=== PATIENT | female | born 1960 | race Caucasian/White ===

== ENCOUNTER 2021-08-31 12:39 | Emergency (ER) | payer SELFPAY ==
[2021-08-31] VITALS (7 sets, daily range): BP systolic 126–184; BP diastolic 60–105; PULSE 81–111; RESP 10–18; O2SAT 87–100; BMI 49.6
--- NOTE | 2021-08-31 12:43 | XR_ITS ---
WS: [id number] Exam: XR chest 1V portable [id number] Date/Time of Exam: 08/31/2021 12:51 PM Reason For Exam: dyspnea No previous exams. The lungs are fully expanded and clear. Normal cardiomediastinal silhouette. Bony structures are inta ct. XR/XR chest 1V portable [id number] IMPRESSION: 1. No acute cardiopulmonary finding.
--- NOTE | 2021-08-31 12:49 | CT_ITS ---
WS: [id number] CT HEAD TECHNIQUE: Noncontrast CT of the head obtained from the skullbase to the vertex. CLINICAL INFORMATION: eval for pathologies. Syncope COMPARISON: None. DLP: 848.[address] scans at [facility] use at least one of these dose optimization techniques: automated e xposure control; mA and/or kV adjustment per patient size (includes targeted exams where dose is matc hed to clinical indication); or iterative reconstruction. FINDINGS: No evidence of intracranial hemorrhage or mass effect. Ventricular system and basal cisterns are mcadams nt. Mild small vessel changes with mild parenchymal volume loss. No extra-axial fluid collections. No evidence of mass or mass effect. Normal parikh-white differentiation. Intracranial vascular calcificat ion. Paranasal sinuses and mastoid air cells are well aerated. .Normal visualized soft tissues. CT/CT head wo con* [id number] IMPRESSION: 1. No evidence of intracranial hemorrhage or mass effect. 2. Mild small vessel changes. Mild parenchymal volume loss. 3. No acute intracranial findings.
[2021-08-31] MEDS: ipratropium-albuterol 3 mL Neb INHALATION ×3 (13:00→13:01)
--- NOTE | 2021-08-31 13:05 | ED_ITS ---
HPI - General Adult General: Chief complaint: Altered Mental Status Stated complaint: SOB Time Seen by Provider: 08/31/21 12:43 History of Present Illness: Patient is a 61-year-old female with history of CHF, COPD asthma smoking, hypertension, hyperlipidemia who presents emergency room for evaluation of acute dyspnea since her oxygen device broke this morning. Patient tells me that she she is at baseline on 3 L of oxygen however this morning, her oxygen device stopped working and has been short of breath since. Patient called EMS was brought to the emergency room. In route, patient was noted to be satting at 80% on room air. Patient was placed on 3L with improvement to 90% per rescue. Patient received albuterol treatments with Solu- Medrol in route. On arrival, patient reports symptomatic improvement in breathing. Patient also reports 3 days of cough and significant headache this morning with the onset of shortness of breath. Patient denies any fall or injuries. He denies any active chest pain, nausea/vomiting, melena/hematochezia, urinary complaints or abdominal pain. Patient reports that she is compliant with her furosemide dose daily patient. Patient takes 60 mg for furosemide and follows up with cardiology at a different hospital. Onset: this AM around 8am Duration:ongoing Location:home Severity:moderate Associated symptoms: Reports dyspnea; Deny chest pain, nausea, rash, palpitations or vomiting Review of Systems Const: Denies: fever(s) or chills Eyes: Denies: change in vision ENMT: Denies: mouth pain Card: Denies: chest pain or palpitations Resp: Reports: dyspnea and non-productive cough GI: Denies: abdominal pain, nausea, vomiting or diarrhea : Denies: dysuria Musc: Denies: extremity pain Skin/Breast: Denies: rash or new lesions Neuro: Denies: weakness in extremities Psych: Reports: other (Normal mood) [place]/Lymph: Denies: easy bruising PFSH ED PFSH: Medical History (Updated 08/31/21 @ 14:17 by Rashawn Ocasio MD) CHF (congestive heart failure) COPD (chronic obstructive pulmonary disease) COPD exacerbation Hypertension Social History (Updated 08/31/21 @ 13:10 by Rashawn Ocasio MD) Smoking and tobacco status: current every day smoker Alcohol intake: never Physical Exam Const: COMMON NORMALS: alert HENMT: COMMON NORMALS: atraumatic HEAD & SCALP: atraumatic MOUTH: moist mucous membranes not abnormal Eye: COMMON NORMALS: EOMs intact bilaterally and conjunctivae normal CONJUNCTIVA: Yes conjunctivae normal Neck/C-Spine: COMMON NORMALS: full ROM and supple Resp: COMMON NORMALS: normal respiratory effort OTHER: + Mild expiratory wheezes bilaterally lung quispe, coarse breath sounds bilaterally Cardio: COMMON NORMALS: regular rate RATE: regular rate GI: COMMON NORMALS: Soft to palpation and non-tender PALPATION: Yes Soft to palpation Extremity: COMMON NORMALS: full ROM NARRATIVE EXTREMITY EXAM: 1+ lower extremity edema below hte knees Neuro: SENSORIUM/ORIENTATION: Yes alert MOTOR EXAM: No Abnormal motor strength present and Other motor observations present (no focal motor deficits) Psych: COMMON NORMALS: speech normal SPEECH: Yes normal speech MOOD & AFFECT: Yes euthymic mood Course Vital Signs: Vital signs: Vital Signs Pulse Rate 85 08/31/21 16:08 Respiratory Rate 16 08/31/21 16:08 Blood Pressure 126/60 08/31/21 16:08 Pulse Oximetry 100 08/31/21 16:08 MDM - General Adult Medical Decision Making 61-year-old female with a history of CHF, COPD, smoking on 3L oxygen at baseline presenting to emergency room with acute dyspnea after her oxygen device failed to work at home. Patient is noted to have mild expiratory wheezes. Patient received treatments and steroids in route. Patient received additional treatment in the emergency room with significant improvement in symptoms. The patient continues to be satting greater than 95% on 2 L of oxygen. No increased work of breathing observed today. Lab work-up including x-rays negative for any acute findings. At the present time, we have performed home O2 assessment and patient elects to go home. Patient will be going to send home with 3 L of oxygen. Patient also complains of severe headache earlier today. Patient was not found to have no acute intracranial pathologies. Headache improved after observation, likely secondary to breathing treatments. Patient is able to ambulate with O2 sats greater than 95%. No signs of increased work breathing with ambulation. Patient stable for discharge. Rx albuterol inhaler, prednisone 40mg x 5 days, oxygen to go home with Disposition: Discharge. Patient counseled regarding diagnostic impression, treatment plan. Patient given ED strict return precautions to return for continuation, worsening, or development of new symptoms. Instructed to f/u w/ PCP regarding symptoms today. Patient verbalized understanding. Lab Data : 08/31/21 13:58 08/31/21 13:58 Radiology Impressions Chest X-Ray 08/31/21 12:43 IMPRESSION: 1. No acute cardiopulmonary finding. Head CT 08/31/21 12:49 IMPRESSION: 1. No evidence of intracranial hemorrhage or mass effect. 2. Mild small vessel changes. Mild parenchymal volume loss. 3. No acute intracranial findings. Laboratory Results WBC 9.2 10^3/uL (4.0-10.0) 08/31/21 13:58 RBC 4.63 10^6/uL (4.1-5.3) 08/31/21 13:58 Hgb 12.7 g/dL (11.5-15.3) 08/31/21 13:58 Hct 42.9 % (37.0-47.0) 08/31/21 13:58 MCV 92.7 fl (81-99) 08/31/21 13:58 MCH 27.4 pg (28.0-34.0) L 08/31/21 13:58 MCHC 29.6 g/dL (30.0-36.0) L 08/31/21 13:58 RDW 12.6 % (12.1-15.1) 08/31/21 13:58 Plt Count 215 10^3/cmm (130-400) 08/31/21 13:58 MPV 9.5 fL (7.4-10.4) 08/31/21 13:58 Neut % (Auto) 87.7 % 08/31/21 13:58 Lymph % (Auto) 10.3 % 08/31/21 13:58 [place] % (Auto) 1.1 % 08/31/21 13:58 Eos % (Auto) 0.4 % 08/31/21 13:58 Baso % (Auto) 0.3 % 08/31/21 13:58 Neut # (Auto) 8.07 10^3/uL (1.8-7.7) H 08/31/21 13:58 Lymph # (Auto) 1.0 10^3/uL (0.8-4.8) 08/31/21 13:58 [place] # (Auto) 0.1 10^3/uL (0.2-0.9) L 08/31/21 13:58 Eos # (Auto) 0.0 10^3/uL (0.0-0.8) 08/31/21 13:58 Baso # (Auto) 0.0 10^3/uL (0.0-0.1) 08/31/21 13:58 Nucleated RBC % (auto) 0 % 08/31/21 13:58 Nucleated RBCs # 0.0 /100WBC 08/31/21 13:58 Sodium 145 mmol/L (136-145) 08/31/21 13:58 Potassium 3.8 mmol/L (3.5-5.1) 08/31/21 13:58 Chloride 97 mmol/L (98-107) L 08/31/21 13:58 Carbon Dioxide 39 mmol/L (22-29) H 08/31/21 13:58 Anion Gap 12.8 (5-19) 08/31/21 13:58 BUN 10 mg/dL (8-23) 08/31/21 13:58 Creatinine 0.6 mg/dL (0.5-0.9) 08/31/21 13:58 GFR Calculation 101.0 mL/min (90-130) 08/31/21 13:58 Glucose 151 mg/dL (65-115) H 08/31/21 13:58 Calculated Osmolality 302 mOsm/kg (285-295) H 08/31/21 13:58 Calcium 10.0 mg/dL (8.5-10.5) 08/31/21 13:58 Troponin T Baseline 12 ng/L (0-10) H 08/31/21 13:58 Troponin T 120 Minute 12.08 ng/L (0-10) H 08/31/21 15:52 Delta Troponin T 0.08 ABS# (0-10) 08/31/21 15:52 NT-Pro-B Natriuret Pep 240 pg/mL (0-125) H 08/31/21 13:58 Imaging Data Other Imaging: Radiologist's impression: Launch?Image Who Can [facility] [place] [address] [place] [address] CT Scan Report Signed Patient: Lupe Barber Unit #: [id number] : 1960 Age/Sex: 61 / F ADM Date: 08/31/21 Loc: ER Room/Bed: Attending Dr: Ordering Provider/Ordering MD: Rashawn Ocasio MD Date of Service: 08/31/21 Procedure(s): CT head wo con* [id number] Accession Number(s): [id number] Report Number: [id number] WS: [id number] CT HEAD TECHNIQUE: Noncontrast CT of the head obtained from the skullbase to the vertex. CLINICAL INFORMATION: eval for pathologies. Syncope COMPARISON: None. DLP: 848.[address] scans at [facility] use at least one of these dose optimization techniques: automated exposure control; mA and/or kV adjustment per patient size (includes targeted exams where dose is matched to clinical indication); or iterative reconstruction. FINDINGS: No evidence of intracranial hemorrhage or mass effect. Ventricular system and basal cisterns are patent. Mild small vessel changes with mild parenchymal volume loss. No extra-axial fluid collections. No evidence of mass or mass effect. Normal parikh-white differentiation. Intracranial vascular calcification. Paranasal sinuses and mastoid air cells are well aerated. .Normal visualized soft tissues. CT/CT head wo con* [id number] IMPRESSION: ? 1.? No evidence of intracranial hemorrhage or mass effect. 2.? Mild small vessel changes. Mild parenchymal volume loss. 3.? No acute intracranial findings. ? Dictated By: Cortez Payne MD Signed By: Cortez Payne MD Signed Date/Time: 08/31/21 1356 DD/ [address] [address] XRay Report Signed Patient: Lupe Barber Unit #: [id number] : 1960 Age/Sex: 61 / F ADM Date: 08/31/21 Loc: ER Room/Bed: Attending Dr: Ordering Provider/Ordering MD: Rashawn Ocasio MD Date of Service: 08/31/21 Procedure(s): XR chest 1V portable [id number] Accession Number(s): [id number] Report Number: [id number] WS: [id number] Exam: XR chest 1V portable [id number] Date/Time of Exam: 08/31/2021 12:51 PM Reason For Exam: dyspnea No previous exams. The lungs are fully expanded and clear. Normal cardiomediastinal silhouette. Bony structures are intact. XR/XR chest 1V portable [id number] IMPRESSION: 1. No acute cardiopulmonary finding. ? Dictated By: Armando Croft DO Signed By: Armando Croft DO Signed Date/Time: 08/31/21 1310 DD/ 1309 Discharge Plan Discharge Patient Disposition: Home Clinical Impression: Wheezing, Dyspnea Condition: Stable Prescriptions: New prednisone 50 mg tablet 50 mg PO DAILY PRN (Reason: copd exacerbation) 5 Days Qty: 5 0RF albuterol sulfate 90 mcg/actuation HFA aerosol inhaler 2 inh inhalation Q6H PRN (Reason: shortness of breath or wheezing) 5 Days Qty: 6.7 0RF No Action multivitamin Tablet 1 tab PO DAILY 0RF furosemide 40 mg tablet 20 mg PO QAM 0RF bupropion HCl 150 mg tablet sustained-release 12 hr 150 mg PO BID 0RF Vitamin C 1,000 mg Tablet 1,000 mg PO DAILY 0RF atorvastatin 20 mg tablet 20 mg PO BEDTIME 0RF ipratropium-albuterol 0.5 mg-3 mg(2.5 mg base)/3 mL solution for nebulization 3 ml INHALATION TID PRN (Reason: Shortness Of Breath) 0RF Aspir-81 81 mg Tablet,Delayed Release (Dr/Ec) 81 mg PO BEDTIME 0RF carvedilol 3.125 mg tablet 3.125 mg PO BID 0RF Euthyrox 75 mcg tablet 75 mcg PO QAM 0RF telmisartan 40 mg tablet 40 mg PO BEDTIME 0RF Nitrostat 0.4 mg Tablet, Sublingual 0.4 mg SUBLINGUAL Q5M PRN (Reason: Chest Pain) 0RF Rx Instructions: do not exceed 3 doses per episode vitamin B complex Tablet 1 tab PO DAILY 0RF zolpidem 5 mg tablet 5 mg PO BEDTIME 0RF Hair,Skin and Nails Tablet 1 tab PO DAILY 0RF albuterol sulfate 90 mcg/actuation HFA aerosol inhaler 2 puff INHALATION Q4H PRN (Reason: Shortness Of Breath) 0RF Flonase 50 mcg/actuation [place],Suspension 2 spray INTRANASAL DAILY PRN (Reason: Allergy Symptoms) 0RF Rx Instructions: administer into each nostril Opcon-A 0.18666-3.315 % Drops 2 drp ophthalmic (eye) BID 0RF Vitamin D3 125 mcg (5,000 unit) Tablet 125 mcg PO DAILY 0RF Discharge Orders: Discharge ED (Routine); Ordered 08/31/21 Ordered By: Rashawn Ocasio Other Ambulatory Orders: DME: Oxygen (Order) Location: None Selected Ordered By: Rashawn Ocasio Discharge Diet: Advance as tolerated Discharge Activity: Increase activity as tolerated Patient Instructions: Dyspnea (ED) Activity Restrictions/Additional Instructions: Come back to the emergency room if your symptoms worsen, have any shortness of breath, fever/chills, dehydration, inability tolerate food or drinks, any difficulty breathing, or any new or concerning complaints. Please return the emergency room if your pulse ox reads less than 88% while on your usual oxygen amount. Please use your oxygen. Coding Level of Care Code ED Case Sealer for Enid Fwwilman Exam Comprehensive
[2021-08-31 14:08] LABS: Basophils % 0.3 %; Eosinophils % 0.4 %; Hematocrit 42.9 % (37.0-47.0); Hemoglobin 12.7 g/dL (11.5-15.3); Lymphocytes % 10.3 %; Mean Corpuscular HGB Conc 29.6 g/dL (30.0-36.0); Mean Corpuscular Hemoglobin 27.4 pg (28.0-34.0); Mean Corpuscular Volume 92.7 fl (81-99); Mean Platelet Volume 9.5 fL (7.4-10.4); Monocytes # 0.1 10^3/uL (0.2-0.9); Monocytes % 1.1 %; Neutrophils # 8.07 10^3/uL (1.8-7.7); Neutrophils % 87.7 %; Nucleated Red Blood Cells % 0 %; Platelet Count 215 10^3/cmm (130-400); Red Blood Count 4.63 10^6/uL (4.1-5.3); Red Cell Distribution Width 12.6 % (12.1-15.1); White Blood Count 9.2 10^3/uL (4.0-10.0)
[2021-08-31 14:29] LABS: Troponin(5th) Baseline 12 ng/L (0-10)
[2021-08-31 14:36] LABS: Anion Gap 12.8 (5-19); Blood Urea Nitrogen 10 mg/dL (8-23); Carbon Dioxide 39 mmol/L (22-29); Chloride 97 mmol/L (98-107); Glucose 151 mg/dL (65-115); NT Pro B Type Natriuretic Pept 240 pg/mL (0-125); Osmolality Calculated 302 mOsm/kg (285-295); Potassium 3.8 mmol/L (3.5-5.1); Sodium 145 mmol/L (136-145)
--- NOTE | 2021-08-31 14:43 | ECG_ITS ---
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 Measurements Intervals [place] Rate: 79 P: 72 UT: 146 QRS: 64 QRSD: 95 T: 58 QT: 301 QTc: 347 Interpretive Statements SINUS RHYTHM NONSPECIFIC T-WAVE ABNORMALITY No previous ECG available for comparison Electronically Signed On 08-31-2021 22:24:23 CDT by Suman Dockery M.D. [id number]
[2021-08-31 16:38] LABS: Troponin 5 2HR 12.08 ng/L (0-10)
[2021-08-31 16:41] LABS: Troponin 5 2HR Delta 0.08 ABS# (0-10)
== END 2021-08-31 19:00 | disposition home or self-care (01) ==
PROVIDERS: Emergency Provider Emergency Medicine
DX: J44.9 Chronic obstructive pulmonary disease, unspecified (principal); R41.82 Altered mental status, unspecified; I11.0 Hypertensive heart disease with heart failure; I50.9 Heart failure, unspecified; F17.210 Nicotine dependence, cigarettes, uncomplicated; E78.5 Hyperlipidemia, unspecified; Z99.81 Dependence on supplemental oxygen
CPT/HCPCS: 70450; 71045; 80048; 83880; 84484; 85025; 93005; 94640; 99283

== ENCOUNTER 2021-12-07 01:59 | Emergency (ER) | payer MEDICAID, SELFPAY ==
[2021-12-07 02:01] VITALS: BP 117/73; PULSE 86; RESP 19; TEMP 36.7; O2SAT 94; BMI 30.9
--- NOTE | 2021-12-07 02:02 | ECG_ITS ---
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 Measurements Intervals [place] Rate: 82 P: 74 GA: 100 QRS: 57 QRSD: 97 T: 60 QT: 356 QTc: 418 Interpretive Statements SINUS RHYTHM WITH SHORT GA INTERVAL Compared to ECG 08/31/2021 15:38:30 Short GA interval now present T-wave abnormality no longer present Electronically Signed On 12-07-2021 16:29:21 CDT by Bertrand Jiménez M.D. [id number]
--- NOTE | 2021-12-07 02:02 | XRR_ITS ---
PROCEDURE INFORMATION: Exam: XR Chest Exam date and time: 12/07/2021 2:18 AM Age: 61 years old Clinical indication: Chest pressure; Patient HX: C/O chest pain with SOB. History of copd. ; Additional info: Cp TECHNIQUE: Imaging protocol: Radiologic exam of the chest. Views: 1 view. COMPARISON: CR XR chest 1V portable [id number] 08/31/2021 1:06 PM FINDINGS: Lungs: The lungs are somewhat hyperinflated with increased interstitial markings, likely representing COPD. No evidence of focal consolidation to suggest pneumonia. Pleural spaces: Unremarkable. No pleural effusion. No pneumothorax. Heart/Mediastinum: Stable cardiomediastinal silhouette. Bones/joints: Degenerative changes of the spine seen. XR/XR chest 1V portable [id number] IMPRESSION: No evidence of focal consolidation. COPD changes.
--- NOTE | 2021-12-07 02:09 | W.ED.CHESTPA ---
HPI - Chest Pain General: Chief Complaint: Chest Pain Stated Complaint: CP Time Seen by Provider: 12/07/21 02:00 Source: patient and EMS Mode of arrival: EMS Limitations: no limitations History of Present Illness: Pain has [id number] female states she is been having intermittent chest pains for the last 2 months. She states they come suddenly that sharp cramping type pains and last for seconds. She states she had an episode tonight at roughly 10:00 and then it 12 and she states that she saw her physician today and told her to come to the ER if she had pain like that again. She completely resolved she is pain-free currently she denies any worsening improving factors denies any shortness of breath she is on oxygen at baseline for COPD she is not hypoxic denies any cough or fever. Associated symptoms: Deny abdominal pain, dyspnea, fever(s), nausea or vomiting Review of Systems Const: Denies: fever(s), chills, body aches or change in appetite Eyes: Denies: blurry vision or eye discomfort ENMT: Denies: throat pain or dental pain Card: Reports: chest pain Resp: Denies: dyspnea GI: Denies: abdominal pain, nausea, vomiting or diarrhea : Denies: dysuria Musc: Denies: neck pain or back pain Skin/Breast: Denies: rash Neuro: Denies: headache(s) Psych: Denies: depression [place]/Lymph: Denies: easy bruising All/Imm: Denies: urticaria PFSH ED PFSH: Medical History CHF (congestive heart failure) COPD (chronic obstructive pulmonary disease) COPD exacerbation Hypertension Social History Smoking and tobacco status: current every day smoker Alcohol intake: never Physical Exam Const: COMMON NORMALS: no acute distress, patient oriented x3 and healthy appearing HENMT: COMMON NORMALS: normocephalic and atraumatic HEAD & SCALP: normocephalic and atraumatic Eye: COMMON NORMALS: Equal, round and reactive pupils present and EOMs intact bilaterally PUPIL: Yes Equal, round and reactive pupils present Neck/C-Spine: COMMON NORMALS: full ROM and supple Chest: COMMONS NORMALS: normal inspection of the chest and normal palpation of entire chest wall Resp: COMMON NORMALS: normal respiratory effort, No retractions, No use of accessory muscles and clear to auscultation bilaterally AUSCULTATION: clear to auscultation bilaterally Cardio: COMMON NORMALS: regular rate, regular rhythm and No murmurs present (Cardio) RATE: regular rate RHYTHM: regular rhythm GI: COMMON NORMALS: Normal to inspection, nondistended, normoactive bowel sounds present, Soft to palpation, non-tender and no masses PALPATION: Yes Soft to palpation Extremity: COMMON NORMALS: normal to inspection and full ROM Neuro: COMMON NORMALS: patient oriented x3, moves all extremities and no focal motor deficits Psych: COMMON NORMALS: mental status grossly normal, Normal thought process present and cooperative THOUGHT PROCESS: Normal thought process present Skin: COMMON NORMALS: no rashes or lesions noted and no wounds GENERAL SKIN EXAM: no rashes or lesions noted Course Vital Signs: Vital signs: Vital Signs Temperature 98.1 F 12/07/21 02:01 Pulse Rate 80 12/07/21 04:52 Respiratory Rate 26 H 12/07/21 04:52 Blood Pressure 107/75 12/07/21 04:52 Pulse Oximetry 99 12/07/21 04:52 Oxygen Delivery Me thod 12/07/21 02:01 Oxygen Flow Rate 3 12/07/21 02:01 MDM - Chest Pain Medical Decision Making Patient presents here with chest pains atypical in nature has been going on for months and is sharp in nature. Patient initial troponin here is negative she is well-appearing here she is stable for discharge she is to follow-up with PCP and return if worsening. She understands agrees to plan. Lab Data : 12/07/21 02:10 12/07/21 02:10 Laboratory Results WBC 9.2 10^3/uL (4.0-10.0) 12/07/21 02:10 RBC 4.21 10^6/uL (4.1-5.3) 12/07/21 02:10 Hgb 12.2 g/dL (11.5-15.3) 12/07/21 02:10 Hct 40.4 % (37.0-47.0) 12/07/21 02:10 MCV 96.0 fl (81-99) 12/07/21 02:10 MCH 29.0 pg (28.0-34.0) 12/07/21 02:10 MCHC 30.2 g/dL (30.0-36.0) 12/07/21 02:10 RDW 12.3 % (12.1-15.1) 12/07/21 02:10 Plt Count 277 10^3/cmm (130-400) 12/07/21 02:10 MPV 9.5 fL (7.4-10.4) 12/07/21 02:10 Neut % (Auto) 68.9 % 12/07/21 02:10 Lymph % (Auto) 23.6 % 12/07/21 02:10 [place] % (Auto) 5.3 % 12/07/21 02:10 Eos % (Auto) 1.5 % 12/07/21 02:10 Baso % (Auto) 0.5 % 12/07/21 02:10 Neut # (Auto) 6.30 10^3/uL (1.8-7.7) 12/07/21 02:10 Lymph # (Auto) 2.2 10^3/uL (0.8-4.8) 12/07/21 02:10 [place] # (Auto) 0.5 10^3/uL (0.2-0.9) 12/07/21 02:10 Eos # (Auto) 0.1 10^3/uL (0.0-0.8) 12/07/21 02:10 Baso # (Auto) 0.1 10^3/uL (0.0-0.1) 12/07/21 02:10 Nucleated RBC % (auto) 0 % 12/07/21 02:10 Nucleated RBCs # 0.0 /100WBC 12/07/21 02:10 Sodium 142 mmol/L (136-145) 12/07/21 02:10 Potassium 3.9 mmol/L (3.5-5.1) 12/07/21 02:10 Chloride 93 mmol/L (98-107) L 12/07/21 02:10 Carbon Dioxide 43 mmol/L (22-29) H* 12/07/21 02:10 Anion Gap 9.9 (5-19) 12/07/21 02:10 BUN 15 mg/dL (8-23) 12/07/21 02:10 Creatinine 0.6 mg/dL (0.5-0.9) 12/07/21 02:10 GFR Calculation 101.0 mL/min (90-130) 12/07/21 02:10 Glucose 114 mg/dL (65-115) 12/07/21 02:10 Calculated Osmolality 296 mOsm/kg (285-295) H 12/07/21 02:10 Calcium 9.8 mg/dL (8.5-10.5) 12/07/21 02:10 Total Bilirubin 0.3 mg/dL (0.15-1.2) 12/07/21 02:10 AST 15 U/L (0-32) 12/07/21 02:10 ALT 11 U/L (0-33) 12/07/21 02:10 Alkaline Phosphatase 82 IU/L (35-105) 12/07/21 02:10 Troponin T Baseline 11 ng/L (0-10) H 12/07/21 02:10 Total Protein 6.5 g/dL (6.6-8.7) L 12/07/21 02:10 Albumin 4.0 g/dL (3.5-5.2) 12/07/21 02:10 Globulin 2.5 g/dL (1.3-4.6) 12/07/21 02:10 EKG Data EKG 1: I personally reviewed and interpreted this EKG as follows: EKG interpretation date: 12/07/21 EKG interpretation time: 02:09 Interpretation: nsr hr [address] or t wave abnormalities qrs 97 qtc 395 Discharge Plan Discharge Patient Disposition: Home Clinical Impression: Chest pain Condition: Stable Prescriptions: No Action multivitamin Tablet 1 tab PO DAILY furosemide 40 mg tablet 20 mg PO QAM bupropion HCl 150 mg tablet sustained-release 12 hr 150 mg PO BID Vitamin C 1,000 mg Tablet 1,000 mg PO DAILY atorvastatin 20 mg tablet 20 mg PO BEDTIME ipratropium-albuterol 0.5 mg-3 mg(2.5 mg base)/3 mL solution for nebulization 3 ml INHALATION TID PRN (Reason: Shortness Of Breath) Aspir-81 81 mg Tablet,Delayed Release (Dr/Ec) 81 mg PO BEDTIME carvedilol 3.125 mg tablet 3.125 mg PO BID Euthyrox 75 mcg tablet 75 mcg PO QAM telmisartan 40 mg tablet 40 mg PO BEDTIME Nitrostat 0.4 mg Tablet, Sublingual 0.4 mg SUBLINGUAL Q5M PRN (Reason: Chest Pain) Rx Instructions: do not exceed 3 doses per episode vitamin B complex Tablet 1 tab PO DAILY zolpidem 5 mg tablet 5 mg PO BEDTIME Hair,Skin and Nails Tablet 1 tab PO DAILY albuterol sulfate 90 mcg/actuation HFA aerosol inhaler 2 puff INHALATION Q4H PRN (Reason: Shortness Of Breath) Flonase 50 mcg/actuation [place],Suspension 2 spray INTRANASAL DAILY PRN (Reason: Allergy Symptoms) Rx Instructions: administer into each nostril Opcon-A 0.56190-5.315 % Drops 2 drp ophthalmic (eye) BID Vitamin D3 125 mcg (5,000 unit) Tablet 125 mcg PO DAILY Discharge Orders: Discharge ED (Routine); Ordered 12/07/21 Ordered By: Mariya Casper Referrals: Bertrand Jiménez MD [Physician] - 1-3 days Discharge Diet: Advance as tolerated Discharge Activity: Resume usual activity Patient Instructions: Chest Pain (ED) Coding Level of Care Code ED Recycle Worker for Chg Fwd Exam Comprehensive
[2021-12-07 02:17] LABS: Basophils # 0.1 10^3/uL (0.0-0.1); Basophils % 0.5 %; Eosinophils # 0.1 10^3/uL (0.0-0.8); Eosinophils % 1.5 %; Hematocrit 40.4 % (37.0-47.0); Hemoglobin 12.2 g/dL (11.5-15.3); Lymphocytes # 2.2 10^3/uL (0.8-4.8); Lymphocytes % 23.6 %; Mean Corpuscular HGB Conc 30.2 g/dL (30.0-36.0); Mean Platelet Volume 9.5 fL (7.4-10.4); Monocytes # 0.5 10^3/uL (0.2-0.9); Monocytes % 5.3 %; Neutrophils % 68.9 %; Nucleated Red Blood Cells % 0 %; Platelet Count 277 10^3/cmm (130-400); Red Blood Count 4.21 10^6/uL (4.1-5.3); Red Cell Distribution Width 12.3 % (12.1-15.1); White Blood Count 9.2 10^3/uL (4.0-10.0)
[2021-12-07 02:21] VITALS: BP 130/67; PULSE 82; RESP 19; O2SAT 98
[2021-12-07 04:37] LABS: Alanine Aminotransferase 11 U/L (0-33); Alkaline Phosphatase 82 IU/L (35-105); Anion Gap 9.9 (5-19); Aspartate Amino Transferase 15 U/L (0-32); Blood Urea Nitrogen 15 mg/dL (8-23); Calcium 9.8 mg/dL (8.5-10.5); Chloride 93 mmol/L (98-107); Globulin 2.5 g/dL (1.3-4.6); Glucose 114 mg/dL (65-115); Osmolality Calculated 296 mOsm/kg (285-295); Potassium 3.9 mmol/L (3.5-5.1); Sodium 142 mmol/L (136-145); Total Bilirubin 0.3 mg/dL (0.15-1.2); Total Protein 6.5 g/dL (6.6-8.7); Troponin(5th) Baseline 11 ng/L (0-10)
[2021-12-07 04:52] VITALS: BP 107/75; PULSE 80; RESP 26; O2SAT 99
[2021-12-07 04:53] LABS: Carbon Dioxide 43 mmol/L (22-29)
--- NOTE | 2021-12-07 07:38 | DCPLANNER ---
Addendum entered by Sharon Israel 12/08/21 09:20: winter sports manager was sent the following message from [facility] regarding appointment: Patient wants to talk to primary first and then call back to get an appointment On 12/07/21 @ 08:35 Usha Rockwell Wrote To [facility] Front Office Attempted to contact patient - left a voicemail to call back Original Note: winter sports manager had message to schedule a follow up appointment for patient with cardiology. winter sports manager sent patients information to the front office staff at [facility]. Patients information will be printed and reviewed. Clinic will call patient with appointment information.
== END 2021-12-07 05:03 | disposition home or self-care (01) ==
PROVIDERS: Emergency Provider Emergency Medicine
DX: R07.9 Chest pain, unspecified (principal); Z79.82 Long term (current) use of aspirin; I11.0 Hypertensive heart disease with heart failure; I50.9 Heart failure, unspecified; J44.9 Chronic obstructive pulmonary disease, unspecified; F17.210 Nicotine dependence, cigarettes, uncomplicated
CPT/HCPCS: 71045; 80053; 84484; 85025; 93005; 99285

== ENCOUNTER 2022-06-05 02:07 | Emergency (ER) | payer MEDICAID, SELFPAY ==
[2022-06-05 02:08] VITALS: BMI 34.3
[2022-06-05 02:15] VITALS: BP 110/75; PULSE 107; RESP 22; TEMP 37.1; O2SAT 89
--- NOTE | 2022-06-05 02:31 | XRR_ITS ---
PROCEDURE INFORMATION: Exam: XR Chest Exam date and time: 06/05/2022 2:53 AM Age: 62 years old Clinical indication: Pain; Chest pressure; Additional info: Cp TECHNIQUE: Imaging protocol: Radiologic exam of the chest. Views: 1 view. COMPARISON: CR (CHEST, ) 12/07/2021 2:18 AM FINDINGS: Lungs: There is mild prominence of the central pulmonary vasculature with increased linear and interstitial opacity seen in the mid lower hemithoraces, findings that could represent pulmonary edema. Superimposed bilateral basilar pneumonitis cannot be entirely excluded. Pleural spaces: Unremarkable. No pleural effusion. No pneumothorax. Heart/Mediastinum: Unremarkable. No cardiomegaly. Bones/joints: Unremarkable. XR/XR chest 1V portable [id number] IMPRESSION: Mildly prominent central pulmonary vasculature with increased linear and interstitial opacities in the mid lower hemithoraces, findings that may represent pulmonary edema. Superimposed bilateral basilar interstitial pneumonitis cannot be entirely excluded.
--- NOTE | 2022-06-05 02:34 | W.ED.CHESTPA ---
HPI - Chest Pain General: Chief Complaint: Chest Pain Stated Complaint: chest pressure Time Seen by Provider: 06/05/22 02:31 History of Present Illness: 62-year-old female with a history of heart failure. She presents with chest discomfort and shortness of breath. She has had a bit of a dry cough. She noted that it felt like she was getting shocked in her chest on and off since earlier today. She noted swelling in her feet yesterday morning, so she took a dose of furosemide. She is mildly short of breath above her baseline. She is chronically on oxygen. MD complaint: chest pain Onset (ago): hour(s) Prior episodes: Yes Onset: during rest Pain location: substernal Associated symptoms: Reports dyspnea, leg edema and nausea; Deny fever(s), palpitations or vomiting Treatment prior to arrival: nitroglycerin and oxygen Review of Systems Const: Denies: fever(s) ENMT: Denies: throat pain Card: Reports: chest pain; Denies: palpitations Resp: Reports: dyspnea and non-productive cough GI: Reports: nausea; Denies: vomiting PFS ED PFSH: Medical History CHF (congestive heart failure) COPD (chronic obstructive pulmonary disease) COPD exacerbation Hypertension Social History Smoking and tobacco status: current every day smoker Alcohol intake: never Physical Exam Const: COMMON NORMALS: no acute distress GENERAL APPEARANCE: frail appearing (mildly) HENMT: COMMON NORMALS: normocephalic, atraumatic and Normal external nose present HEAD & SCALP: normocephalic and atraumatic FACE & SINUS: normal facial exam and face symmetric NOSE: Normal external nose present Eye: COMMON NORMALS: Equal, round and reactive pupils present and EOMs intact bilaterally PUPIL: Yes Equal, round and reactive pupils present Neck/C-Spine: GENERAL: Yes trachea midline Chest: CHEST: Yes Symmetrical chest wall rise Resp: COMMON NORMALS: normal respiratory effort, No retractions, No use of accessory muscles and clear to auscultation bilaterally AUSCULTATION: clear to auscultation bilaterally Cardio: COMMON NORMALS: regular rate and regular rhythm RATE: regular rate RHYTHM: regular rhythm GI: COMMON NORMALS: Normal to inspection, nondistended, normoactive bowel sounds present Extremity: COMMON NORMALS: no pedal edema Neuro: SANDRA COMA SCALE: document GCS findings [place] coma scale eye opening: Spontaneous [place] coma scale verbal response: Orientated [place] coma scale motor response: Obey commands Sandra coma scale total score: 15 SENSORY EXAM: Yes extremities (intact) Psych: COMMON NORMALS: speech normal SPEECH: Yes normal speech Skin: COMMON NORMALS: no rashes or lesions noted GENERAL SKIN EXAM: no rashes or lesions noted Course Vital Signs: Vital signs: Vital Signs Temperature 98.8 F 06/05/22 02:15 Pulse Rate 79 06/05/22 08:40 Respiratory Rate 18 06/05/22 05:30 Blood Pressure 132/65 06/05/22 08:40 Pulse Oximetry 97 06/05/22 08:40 Oxygen Delivery Me thod 06/05/22 06:51 Oxygen Flow Rate 3 06/05/22 05:30 MDM - Chest Pain Medical Decision Making 62 year old female who was here with chest pain and some shortness of breath. She does wear oxygen at home. Oxygen saturations have been stable here. Chest X-ray shows pulmonary edema. Hemoglobin is 11.4. CBC is otherwise not remarkable. Bicarbonate is 45, indicating chronic CO2 retention With compensation. BMP is otherwise not remarkable. Baseline troponin is 16, with a delta of 2.5. BP is 145. She's given an additional dose of Iv furosemide here. She will be allowed discharged to return if worsening. EKG did not reveal any acute St. changes. Lab Data 06/05/22 02:00 06/05/22 03:31 Radiology Impressions Chest X-Ray 06/05/22 02:31 IMPRESSION: Mildly prominent central pulmonary vasculature with increased linear and interstitial opacities in the mid lower hemithoraces, findings that may represent pulmonary edema. Superimposed bilateral basilar interstitial pneumonitis cannot be entirely excluded. Laboratory Results WBC 7.2 10^3/uL (4.0-10.0) 06/05/22 02:00 RBC 3.92 10^6/uL (4.1-5.3) L 06/05/22 02:00 Hgb 11.4 g/dL (11.5-15.3) L 06/05/22 02:00 Hct 38.5 % (37.0-47.0) 06/05/22 02:00 MCV 98.2 fl (81-99) 06/05/22 02:00 MCH 29.1 pg (28.0-34.0) 06/05/22 02:00 MCHC 29.6 g/dL (30.0-36.0) L 06/05/22 02:00 RDW 12.1 % (12.1-15.1) 06/05/22 02:00 Plt Count 237 10^3/cmm (130-400) 06/05/22 02:00 MPV 10.6 fL (7.4-10.4) H 06/05/22 02:00 Neut % (Auto) 59.7 % 06/05/22 02:00 Lymph % (Auto) 31.7 % 06/05/22 02:00 [place] % (Auto) 6.4 % 06/05/22 02:00 Eos % (Auto) 1.5 % 06/05/22 02:00 Baso % (Auto) 0.6 % 06/05/22 02:00 Neut # (Auto) 4.28 10^3/uL (1.8-7.7) 06/05/22 02:00 Lymph # (Auto) 2.3 10^3/uL (0.8-4.8) 06/05/22 02:00 [place] # (Auto) 0.5 10^3/uL (0.2-0.9) 06/05/22 02:00 Eos # (Auto) 0.1 10^3/uL (0.0-0.8) 06/05/22 02:00 Baso # (Auto) 0.0 10^3/uL (0.0-0.1) 06/05/22 02:00 Nucleated RBC % (auto) 0 % 06/05/22 02:00 Nucleated RBCs # 0.0 /100WBC 06/05/22 02:00 PT 13.90 SECONDS (12.1-14.9) 06/05/22 03:31 INR 1.04 (0.8-1.2) 06/05/22 03:31 APTT 24.9 SECONDS (23.9-36.7) 06/05/22 03:31 Sodium 142 mmol/L (136-145) 06/05/22 03:31 Potassium 3.5 mmol/L (3.5-5.1) 06/05/22 03:31 Chloride 95 mmol/L (98-107) L 06/05/22 03:31 Carbon Dioxide 45 mmol/L (22-29) H* 06/05/22 03:31 Anion Gap 5.5 (5-19) 06/05/22 03:31 BUN 17 mg/dL (8-23) 06/05/22 03:31 Creatinine 0.6 mg/dL (0.5-0.9) 06/05/22 03:31 GFR Calculation 100.6 mL/min (90-130) 06/05/22 03:31 Glucose 107 mg/dL (65-115) 06/05/22 03:31 Calculated Osmolality 296 mOsm/kg (285-295) H 06/05/22 03:31 Calcium 9.3 mg/dL (8.5-10.5) 06/05/22 03:31 Total Bilirubin 0.3 mg/dL (0.15-1.2) 06/05/22 03:31 AST 17 U/L (0-32) 06/05/22 03:31 ALT 12 U/L (0-33) 06/05/22 03:31 Alkaline Phosphatase 68 U/L (35-105) 06/05/22 03:31 Creatine Kinase 107 U/L (26-192) 06/05/22 03:31 Troponin T Baseline 16 ng/L (0-10) H 06/05/22 02:00 Troponin T 120 Minute 18.56 ng/L (0-10) H 06/05/22 03:31 Delta Troponin T 2.56 ABS# (0-10) 06/05/22 03:31 NT-Pro-B Natriuret Pep 145 pg/mL (0-125) H 06/05/22 03:31 Total Protein 6.4 g/dL (6.6-8.7) L 06/05/22 03:31 Albumin 3.8 g/dL (3.5-5.2) 06/05/22 03:31 Globulin 2.6 g/dL (1.3-4.6) 06/05/22 03:31 Discharge Plan Discharge Patient Disposition: Home Clinical Impression: Chest pain, Pulmonary edema Condition: Stable Prescriptions: No Action multivitamin Tablet 1 tab PO DAILY furosemide 40 mg tablet 20 mg PO QAM bupropion HCl 150 mg tablet sustained-release 12 hr 150 mg PO BID Vitamin C 1,000 mg Tablet 1,000 mg PO DAILY atorvastatin 20 mg tablet 20 mg PO BEDTIME ipratropium-albuterol 0.5 mg-3 mg(2.5 mg base)/3 mL solution for nebulization 3 ml INHALATION TID PRN (Reason: Shortness Of Breath) Aspir-81 81 mg Tablet,Delayed Release (Dr/Ec) 81 mg PO BEDTIME carvedilol 3.125 mg tablet 3.125 mg PO BID Euthyrox 75 mcg tablet 75 mcg PO QAM telmisartan 40 mg tablet 40 mg PO BEDTIME Nitrostat 0.4 mg Tablet, Sublingual 0.4 mg SUBLINGUAL Q5M PRN (Reason: Chest Pain) Rx Instructions: do not exceed 3 doses per episode vitamin B complex Tablet 1 tab PO DAILY zolpidem 5 mg tablet 5 mg PO BEDTIME Hair,Skin and Nails Tablet 1 tab PO DAILY albuterol sulfate 90 mcg/actuation HFA aerosol inhaler 2 puff INHALATION Q4H PRN (Reason: Shortness Of Breath) Flonase 50 mcg/actuation [place],Suspension 2 spray INTRANASAL DAILY PRN (Reason: Allergy Symptoms) Rx Instructions: administer into each nostril Opcon-A 0.09715-0.315 % Drops 2 drp ophthalmic (eye) BID Vitamin D3 125 mcg (5,000 unit) Tablet 125 mcg PO DAILY Discharge Orders: Discharge ED (Routine); Ordered 06/05/22 Ordered By: Clement Andre Patient Instructions: Chest Pain (ED), Pulmonary Edema (ED) Activity Restrictions/Additional Instructions: Increase your furosemide dosage to 20 mg twice daily for the next 3 days, and back to your original dosage. Return for worsening chest pain despite treatment, worsening shortness of breath, fever, or any other concerning symptoms. Coding Level of Care Code ED Ply[employer] Layup Line Back Feeder for Enid Fwwilman Exam Comprehensive
[2022-06-05 02:53] LABS: Basophils % 0.6 %; Eosinophils # 0.1 10^3/uL (0.0-0.8); Eosinophils % 1.5 %; Hematocrit 38.5 % (37.0-47.0); Hemoglobin 11.4 g/dL (11.5-15.3); Lymphocytes # 2.3 10^3/uL (0.8-4.8); Lymphocytes % 31.7 %; Mean Corpuscular HGB Conc 29.6 g/dL (30.0-36.0); Mean Corpuscular Hemoglobin 29.1 pg (28.0-34.0); Mean Corpuscular Volume 98.2 fl (81-99); Mean Platelet Volume 10.6 fL (7.4-10.4); Monocytes # 0.5 10^3/uL (0.2-0.9); Monocytes % 6.4 %; Neutrophils # 4.28 10^3/uL (1.8-7.7); Neutrophils % 59.7 %; Nucleated Red Blood Cells % 0 %; Platelet Count 237 10^3/cmm (130-400); Red Blood Count 3.92 10^6/uL (4.1-5.3); Red Cell Distribution Width 12.1 % (12.1-15.1); White Blood Count 7.2 10^3/uL (4.0-10.0)
[2022-06-05 03:14] VITALS: PULSE 100; O2SAT 96
[2022-06-05 03:19] LABS: Troponin(5th) Baseline 16 ng/L (0-10)
[2022-06-05 03:54] LABS: INR 1.04 (0.8-1.2); Partial Thromboplastin Time 24.9 SECONDS (23.9-36.7)
[2022-06-05 04:05] LABS: Troponin 5 2HR 18.56 ng/L (0-10)
[2022-06-05 04:14] LABS: Alanine Aminotransferase 12 U/L (0-33); Albumin Level 3.8 g/dL (3.5-5.2); Alkaline Phosphatase 68 U/L (35-105); Anion Gap 5.5 (5-19); Aspartate Amino Transferase 17 U/L (0-32); Blood Urea Nitrogen 17 mg/dL (8-23); Calcium 9.3 mg/dL (8.5-10.5); Chloride 95 mmol/L (98-107); Creatine Phosphokinase 107 U/L (26-192); Creatinine Clr Calc Pharmacy 103.3409; Globulin 2.6 g/dL (1.3-4.6); Glomerular Filtration Rate 100.6 mL/min (90-130); Glucose 107 mg/dL (65-115); NT Pro B Type Natriuretic Pept 145 pg/mL (0-125); Osmolality Calculated 296 mOsm/kg (285-295); Potassium 3.5 mmol/L (3.5-5.1); Sodium 142 mmol/L (136-145); Total Bilirubin 0.3 mg/dL (0.15-1.2); Total Protein 6.4 g/dL (6.6-8.7)
[2022-06-05 04:24] LABS: Troponin 5 2HR Delta 2.56 ABS# (0-10)
[2022-06-05 04:26] LABS: Carbon Dioxide 45 mmol/L (22-29)
[2022-06-05] MEDS: morphine 4 mg/mL SDV 1 mL IVP (05:19)
[2022-06-05] MEDS: ondansetron 2 mg/ML SDV 2 mL 4 MG IVP ×2 (05:19→07:10)
[2022-06-05] MEDS: FUROsemide 10 mg/mL SDV 10mL 60 MG IVP (05:20)
[2022-06-05 05:30] VITALS: BP 132/75; PULSE 78; RESP 18; O2SAT 94
[2022-06-05 06:51] VITALS: BP 131/70; PULSE 75; O2SAT 93
[2022-06-05 08:40] VITALS: BP 132/65; PULSE 79; O2SAT 97
== END 2022-06-05 08:55 | disposition home or self-care (01) ==
PROVIDERS: Emergency Provider Emergency Medicine
DX: R07.9 Chest pain, unspecified (principal); J81.1 Chronic pulmonary edema; Z79.82 Long term (current) use of aspirin; I11.0 Hypertensive heart disease with heart failure; I50.9 Heart failure, unspecified; J44.9 Chronic obstructive pulmonary disease, unspecified; F17.210 Nicotine dependence, cigarettes, uncomplicated
CPT/HCPCS: 71045; 80053; 82550; 83880; 84484; 85025; 85610; 85730; 96374; 96375; 96376; 99285; J1940; J2270; J2405

== ENCOUNTER 2022-07-03 22:03 | Inpatient (IN) | payer MEDICAID, SELFPAY ==
[2022-07-03 22:05] VITALS: BP 175/87; PULSE 79; RESP 26; TEMP 36.3; O2SAT 88; BMI 34.3
--- NOTE | 2022-07-03 22:14 | ECG_ITS ---
[facility] Test Date: 2022-07-03 Pat Name: Carmel Barber Department: Room: Gender: Female Solvent Mixer: : 1960 Requested By: Mariya Casper Order Number: [id number] Deisy MD: Suman Dockery M.D. Measurements Intervals [place] Rate: 72 P: 76 NJ: 140 QRS: 72 QRSD: 110 T: 64 QT: 369 QTc: 405 Interpretive Statements SINUS RHYTHM LOW QRS VOLTAGE IN PRECORDIAL LEADS [QRS DEFLECTION < 1.0 mV IN CHEST LEADS] Compared to ECG 12/07/2021 02:09:12 Low QRS voltage now present Short [place] interval no longer present Electronically Signed On 07-04-2022 17:38:19 SEAM CHECKER by Suman Dockery M.D. [id number] f
--- NOTE | 2022-07-03 22:14 | XRR_ITS ---
PROCEDURE INFORMATION: Exam: XR Chest Exam date and time: 07/03/2022 10:18 PM Age: 62 years old Clinical indication: Shortness of breath; Additional info: SOB TECHNIQUE: Imaging protocol: Radiologic exam of the chest. Views: 1 view. COMPARISON: CR (CHEST, ) 06/05/2022 2:53 AM FINDINGS: Lungs: Emphysematous changes. Bibasilar atelectasis versus infiltrate right greater than left. Pleural spaces: Unremarkable. No pleural effusion. No pneumothorax. Heart/Mediastinum: Unremarkable. No cardiomegaly. Bones/joints: Unremarkable. XR/XR chest 1V portable [id number] IMPRESSION: 1. Emphysematous changes. 2. Bibasilar atelectasis versus infiltrate right greater than left.
[2022-07-03 22:18] VITALS: BP 175/87; PULSE 73; RESP 20; O2SAT 100
--- NOTE | 2022-07-03 22:23 | ED_ITS ---
HPI - SOB/Dyspnea General: Chief Complaint: Shortness of Breath/Dyspnea Stated Complaint: SOB Time Seen by Provider: 07/03/22 22:07 Source: patient and EMS Mode of arrival: EMS Limitations: no limitations History of Present Illness: HPI Narrative: 62-year-old female has extensive history of COPD she is on 3 L oxygen at baseline states that she has not been able to use her albuterol for last 2 to 3 days and been having increasing shortness of breath. Patient was on 5 L EMS I turned her back down to her 3.5 L that she wears at home and she is 98% currently she denies any chest pain she has had a slight cough denies any fever. Associated symptoms: Deny abdominal pain, chest pain, fever(s), nausea or vomiting Review of Systems Const: Denies: fever(s), chills, body aches or change in appetite Eyes: Denies: blurry vision or eye discomfort ENMT: Denies: throat pain or dental pain Card: Denies: chest pain Resp: Reports: dyspnea, non-productive cough and wheezing GI: Denies: abdominal pain, nausea, vomiting or diarrhea : Denies: dysuria Musc: Denies: neck pain or back pain Skin/Breast: Denies: rash Neuro: Denies: headache(s) Psych: Denies: depression [place]/Lymph: Denies: easy bruising All/Imm: Denies: urticaria PFSH ED PFSH: Medical History CHF (congestive heart failure) COPD (chronic obstructive pulmonary disease) COPD exacerbation Hypertension Social History Smoking and tobacco status: current every day smoker Alcohol intake: never Physical Exam Const: COMMON NORMALS: patient oriented x3 GENERAL APPEARANCE: in distress HENMT: COMMON NORMALS: normocephalic and atraumatic HEAD & SCALP: normocephalic and atraumatic Eye: COMMON NORMALS: Equal, round and reactive pupils present and EOMs intact bilaterally PUPIL: Yes Equal, round and reactive pupils present Neck/C-Spine: COMMON NORMALS: full ROM and supple Chest: COMMONS NORMALS: normal inspection of the chest and normal palpation of entire chest wall Resp: COMMON NORMALS: No use of accessory muscles EFFORT & INSPECTION: Yes respiratory distress AUSCULTATION: wheezes Cardio: COMMON NORMALS: regular rate, regular rhythm and No murmurs present (Cardio) RATE: regular rate RHYTHM: regular rhythm GI: COMMON NORMALS: Normal to inspection, nondistended, normoactive bowel sounds present, Soft to palpation, non-tender and no masses PALPATION: Yes Soft to palpation Extremity: COMMON NORMALS: normal to inspection and full ROM Neuro: COMMON NORMALS: patient oriented x3, moves all extremities and no focal motor deficits Psych: COMMON NORMALS: mental status grossly normal, Normal thought process present and cooperative THOUGHT PROCESS: Normal thought process present Skin: COMMON NORMALS: no rashes or lesions noted and no wounds GENERAL SKIN EXAM: no rashes or lesions noted Course Vital Signs: Vital signs: Vital Signs Temperature 97.3 F L 07/03/22 22:05 Pulse Rate 67 07/04/22 01:06 Respiratory Rate 26 H 07/04/22 01:06 Blood Pressure 125/68 07/04/22 00:00 Pulse Oximetry 99 07/04/22 01:06 Oxygen Delivery Me thod 07/04/22 01:06 Oxygen Flow Rate 3 07/03/22 22:05 Fraction of Inspir ed Oxygen 40 07/04/22 01:06 MDM - SOB/Dyspnea Medical Decision Making Patient presents here with COPD exacerbation with hypercapnia did place her on BiPAP she still wakes she is not obtunded she is answering questions appropriately does not need intubation at this point we will continue BiPAP and admit to the ICU. Lab Data 07/03/22 22:15 07/03/22 22:15 Labs/Radiology: Radiology Impressions Chest X-Ray 07/03/22 22:14 IMPRESSION: 1. Emphysematous changes. 2. Bibasilar atelectasis versus infiltrate right greater than left. Laboratory Results WBC 7.1 10^3/uL (4.0-10.0) 07/03/22 22:15 RBC 4.24 10^6/uL (4.1-5.3) 07/03/22 22:15 Hgb 12.5 g/dL (11.5-15.3) 07/03/22 22:15 Hct 42.6 % (37.0-47.0) 07/03/22 22:15 MCV 100.5 fl (81-99) H 07/03/22 22:15 MCH 29.5 pg (28.0-34.0) 07/03/22 22:15 MCHC 29.3 g/dL (30.0-36.0) L 07/03/22 22:15 RDW 11.6 % (12.1-15.1) L 07/03/22 22:15 Plt Count 252 10^3/cmm (130-400) 07/03/22 22:15 MPV 9.8 fL (7.4-10.4) 07/03/22 22:15 Neut % (Auto) 75.2 % 07/03/22 22:15 Lymph % (Auto) 17.3 % 07/03/22 22:15 [place] % (Auto) 4.8 % 07/03/22 22:15 Eos % (Auto) 1.8 % 07/03/22 22:15 Baso % (Auto) 0.6 % 07/03/22 22:15 Neut # (Auto) 5.35 10^3/uL (1.8-7.7) 07/03/22 22:15 Lymph # (Auto) 1.2 10^3/uL (0.8-4.8) 07/03/22 22:15 [place] # (Auto) 0.3 10^3/uL (0.2-0.9) 07/03/22 22:15 Eos # (Auto) 0.1 10^3/uL (0.0-0.8) 07/03/22 22:15 Baso # (Auto) 0.0 10^3/uL (0.0-0.1) 07/03/22:15 Nucleated RBC % (auto) 0 % 07/03/22:15 Nucleated RBCs # 0.0 /100WBC 07/03/22 22:15 PT 13.10 SECONDS (12.1-14.9) 07/03/22 22:15 INR 0.96 (0.8-1.2) 07/03/22 22:15 Specimen Type Arterial 07/04/22 01:01 Sample Site Brachial, left 07/04/22 01:01 ABG pH 7.24 (7.35-7.45) L 07/04/22 01:01 ABG pCO2 104.0 mmHg (35-45) H* 07/04/22 01:01 ABG pO2 91.7 mmHg (80.0-100.0) 07/04/22 01:01 ABG HCO3 44.6 mmol/L (22-26) H 07/04/22 01:01 ABG Base Excess 13.0 mmol/L (-2.0-2.0) H 07/04/22 01:01 Chris Test N/a 07/04/22 01:01 Hematocrit 38.4 % (37-47) 07/04/22 01:01 Hgb O2 Saturation 93.0 % (95-100) L 07/03/22 23:25 Carboxyhemoglobin 3.5 %THgb (0.4-20.1) 07/03/22 23:25 Methemoglobin 1.0 % (0.4-1.5) 07/03/22 23:25 Total Hemoglobin 12.2 g/dL (12-16) 07/03/22 23:25 O2 Delivery Device Bipap 07/04/22 01:01 O2 Liters/Min 3.5 % 07/03/22 23:25 FiO2 40.0 % 07/04/22 01:01 Fusion Operator ID Sulmaabilio 07/04/22 01:01 Sodium 144 mmol/L (136-145) 07/03/22 22:15 Potassium 4.9 mmol/L (3.5-5.1) 07/03/22 22:15 Chloride 97 mmol/L (98-107) L 07/03/22 22:15 Carbon Dioxide 45 mmol/L (22-29) H* 07/03/22 22:15 Anion Gap 6.9 (5-19) 07/03/22 22:15 BUN 12 mg/dL (8-23) 07/03/22 22:15 Creatinine 0.7 mg/dL (0.5-0.9) 07/03/22 22:15 GFR Calculation 84.2 mL/min (90-130) L 07/03/22 22:15 Glucose 147 mg/dL (65-115) H 07/03/22 22:15 Calculated Osmolality 300 mOsm/kg (285-295) H 07/03/22 22:15 Calcium 10.2 mg/dL (8.5-10.5) 07/03/22 22:15 Total Bilirubin 0.3 mg/dL (0.15-1.2) 07/03/22 22:15 AST 22 U/L (0-32) 07/03/22 22:15 ALT 11 U/L (0-33) 07/03/22 22:15 Alkaline Phosphatase 87 U/L (35-105) 07/03/22 22:15 NT-Pro-B Natriuret Pep 78 pg/mL (0-125) 07/03/22 22:15 Total Protein 7.4 g/dL (6.6-8.7) 07/03/22 22:15 Albumin 4.1 g/dL (3.5-5.2) 07/03/22 22:15 Globulin 3.3 g/dL (1.3-4.6) 07/03/22 22:15 Influenza Type A Ag negative (Negative) 07/03/22 22:18 Influenza Type B Ag negative (Negative) 07/03/22 22:18 SARS-CoV-2 Ag (Rapid) negative (Negative) 07/03/22 22:18 Critical Care Time Critical Care Time: Critical Care Time: Yes Total Critical Care Time: 50 Attestation: The high probability of a clinically significant, sudden or life threatening deterioration of the patient's resp system(s) required my full and direct attention, intervention and personal management. The critical care time is as shown. This time is in addition to time spent performing any reported procedures but includes the following: [x] Data and vital sign review and interpretation [x] Patient assessment, examination and intervention [x] Documentation [x] Medication orders and management Discharge Plan Discharge Patient Disposition: Admitted As Inpatient Clinical Impression: Acute exacerbation of chronic obstructive airways disease, Acute hypercapnic respiratory failure Condition: Stable Coding Level of Care Code ED Electric Meter Inspector for Enid Keith
[2022-07-03 22:40] LABS: Influenza A by IFA negative (Negative); Influenza B by IFA negative (Negative); SARS Covid-2 Antigen negative (Negative)
[2022-07-03 22:45] LABS: INR 0.96 (0.8-1.2)
[2022-07-03 22:47] LABS: Basophils % 0.6 %; Eosinophils # 0.1 10^3/uL (0.0-0.8); Eosinophils % 1.8 %; Hematocrit 42.6 % (37.0-47.0); Hemoglobin 12.5 g/dL (11.5-15.3); Lymphocytes # 1.2 10^3/uL (0.8-4.8); Lymphocytes % 17.3 %; Mean Corpuscular HGB Conc 29.3 g/dL (30.0-36.0); Mean Corpuscular Hemoglobin 29.5 pg (28.0-34.0); Mean Corpuscular Volume 100.5 fl (81-99); Mean Platelet Volume 9.8 fL (7.4-10.4); Monocytes # 0.3 10^3/uL (0.2-0.9); Monocytes % 4.8 %; Neutrophils # 5.35 10^3/uL (1.8-7.7); Neutrophils % 75.2 %; Nucleated Red Blood Cells % 0 %; Platelet Count 252 10^3/cmm (130-400); Red Blood Count 4.24 10^6/uL (4.1-5.3); Red Cell Distribution Width 11.6 % (12.1-15.1); White Blood Count 7.1 10^3/uL (4.0-10.0)
[2022-07-03 23:01] LABS: Alanine Aminotransferase 11 U/L (0-33); Albumin Level 4.1 g/dL (3.5-5.2); Alkaline Phosphatase 87 U/L (35-105); Anion Gap 6.9 (5-19); Aspartate Amino Transferase 22 U/L (0-32); Blood Urea Nitrogen 12 mg/dL (8-23); Calcium 10.2 mg/dL (8.5-10.5); Chloride 97 mmol/L (98-107); Globulin 3.3 g/dL (1.3-4.6); Glomerular Filtration Rate 84.2 mL/min (90-130); Glucose 147 mg/dL (65-115); NT Pro B Type Natriuretic Pept 78 pg/mL (0-125); Osmolality Calculated 300 mOsm/kg (285-295); Potassium 4.9 mmol/L (3.5-5.1); Sodium 144 mmol/L (136-145); Total Bilirubin 0.3 mg/dL (0.15-1.2); Total Protein 7.4 g/dL (6.6-8.7)
[2022-07-03 23:12] VITALS: BP 163/78; O2SAT 100
[2022-07-03 23:14] LABS: Carbon Dioxide 45 mmol/L (22-29)
[2022-07-03] MEDS: ondansetron 2 mg/ML SDV 2 mL 4 MG IVP (23:24)
[2022-07-03 23:39] LABS: ABG PH Result 7.24 (7.35-7.45); Arterial Blood Gas Hematocrit 37.3 % (37-47); Base Excess ABG 13.5 mmol/L (-2.0-2.0); Blood Gas LPM 3.5 %; Blood Gas Sample Site Brachial, right; Blood Gas Sample Type Arterial; Carboxyhemoglobin 3.5 %THgb (0.4-20.1); HCO3 ABG 45.2 mmol/L (22-26); Oxygen Device NC; PO2 ABG 95.6 mmHg (80.0-100.0); Total Hemoglobin 12.2 g/dL (12-16)
[2022-07-03 23:53] VITALS: BP 157/90; PULSE 69; O2SAT 97
[2022-07-03 23:59] VITALS: PULSE 56; RESP 15; O2SAT 100
[2022-07-04] VITALS (40 sets, daily range): BP systolic 94–144; BP diastolic 57–98; PULSE 59–93; RESP 9–26; TEMP 35.9–36.9; O2SAT 84–100; BMI 31.4
[2022-07-04] MEDS: albuterol 2.5 mg/3 mL Neb INHALATION ×4 (00:57→20:59)
[2022-07-04 01:13] LABS: ABG PH Result 7.24 (7.35-7.45); Arterial Blood Gas Hematocrit 38.4 % (37-47); Blood Gas Sample Site Brachial, left; Blood Gas Sample Type Arterial; HCO3 ABG 44.6 mmol/L (22-26); Oxygen Device BIPAP; PO2 ABG 91.7 mmHg (80.0-100.0)
--- NOTE | 2022-07-04 01:35 | CTR_ITS ---
PROCEDURE INFORMATION: Exam: CT Chest Without Contrast; Diagnostic Exam date and time: 07/04/2022 4:40 AM Age: 62 years old Clinical indication: Shortness of breath; Patient HX: Severe SOB. Copd exacerbation. History of chf. TECHNIQUE: Imaging protocol: Diagnostic computed tomography of the chest without contrast. Radiation optimization: All CT scans at this facility use at least one of these dose optimization techniques: automated exposure control; mA and/or kV adjustment per patient size (includes targeted exams where dose is matched to clinical indication); or iterative reconstruction. Other protocol: This patient has received [address] and 0 known cardiac nuclear medicine studies in the 12 months prior to the current study. COMPARISON: CR (CHEST, ) 07/03/2022 10:18 PM RADIATION DOSE METRICS: Total DLP (mGy-cm): 439.91 FINDINGS: Lungs: Severe centrilobular and panlobular emphysema. Left hilar and left lower lobe calcified granulomas. No consolidation. Pleural spaces: Unremarkable. No pneumothorax. No pleural effusion. Heart: Heart size is normal. Coronary arteries: Coronary artery calcifications. Lymph nodes: Calcified left hilar and subcarinal lymph nodes. Vasculature: Atherosclerotic tortuosity and calcification of the thoracic aorta. No aortic aneurysm. Liver: Punctate hepatic calcified granulomas. Spleen: Punctate splenic calcified granulomas. Bones/joints: Thoracic spondylosis and degenerative bony changes. Soft tissues: No significant soft tissue abnormalities. CT/CT chest wo con [id number] IMPRESSION: 1. Severe centrilobular and panlobular emphysema. 2. Atherosclerotic vascular disease including coronary artery disease. 3. Old granulomatous disease. COMMENTS: In the absence of a history or active diagnosis of lung cancer, it is recommended that this patient with emphysema be evaluated for enrollment in a low dose CT lung cancer screening program.
--- NOTE | 2022-07-04 01:35 | USCV_ITS ---
Carmel Barber Age: 62 Gender: F : 1960 Exam Date: 07/04/2022 01:54 Ordering Phys: Richard Crisostomo MD Technologist: ARIAN Exam Location: [facility] [place] Indication: chf, copd , O2 dependent at 3L. Patient on BiPAP in ER 16 BP: 125 / 68 HR: 60 Rhythm: Sinus Technical Quality: Fair MEASUREMENTS (Male / Female) Normal Values 2D ECHO LV Diastolic Diameter PLAX 3.6 cm 4.2 - 5.9 / 3.9 - 5.3 cm LV Systolic Diameter PLAX 2.1 cm IVS Diastolic Thickness 0.8 cm 0.6 - 1.0 / 0.6 - 0.9 cm IVS Systolic Thickness 1.2 cm LVPW Diastolic Thickness 1.0 cm 0.6 - 1.0 / 0.6 - 0.9 cm LVPW Systolic Thickness 1.1 cm LVOT Diameter 1.7 cm LV Ejection Fraction 2D Teich 73.7 % LV Ejection Fraction MOD 2C 56.8 % LV Ejection Fraction 2C AL 60.0 % LA Diameter 3.7 cm LA Width 3.0 cm LA Height 4.7 cm RA Width 4.1 cm RA Height 3.8 cm Aorta at Sinotubular Diameter 3.0 cm IVC Diameter 1.4 cm M-MODE Aortic Annulus Diameter 3.2 cm LA Ao Ratio MM 1.1 MV E Point Septal Separation 0.2 cm DOPPLER AV Peak Velocity 171.0 cm/s LVOT Peak Velocity 166.0 cm/s AV Area Cont Eq vti 1.9 cm squared AV Area Cont Eq pk 2.1 cm squared MV Area PHT 2.8 cm squared Mitral E to A Ratio 0.8 MV E' Velocity 50.5 cm/s Mitral E to MV E' Ratio 11.6 Mitral E to LV E' Lateral Ratio 9.9 Mitral E to LV E' Septal Ratio 14.1 TV Peak E Velocity 66.0 cm/s PV Peak Velocity 105.0 cm/s RV Acceleration Time 0.1 s RV Ejection Time 0.5 s RV AcT/ET 0.3 FINDINGS Left Ventricle Left ventricle is normal in size. LV systolic function is normal with EF of 55 to 60%. No regional wall motion abnormalities are seen. Grade 1 diastolic dysfunction Right Ventricle Normal in size and function Right Atrium Normal in size Left Atrium Normal in size Mitral Valve Structurally normal valve. Trace mitral regurgitation Aortic Valve Grossly normal aortic valve. No significant stenosis or regurgitation is seen. Tricuspid Valve Trace tricuspid regurgitation. Inadequate TR jet to calculate RVSP. Pulmonic Valve Not well-visualized Pericardium Normal Aorta Normal in size IVC Grossly normal CONCLUSIONS LV systolic function is normal with EF of 55 to 60% Grade 1 diastolic dysfunction Trace mitral regurgitation Trace tricuspid regurgitation No comparison studies are available Suman Dockery MD (Electronically Signed) Final Date: 04 July 2022 12:22 S
[2022-07-04 02:16] LABS: NT Pro B Type Natriuretic Pept 77 pg/mL (0-125); Procalcitonin 0.02 ng/mL (0-0.5)
[2022-07-04 02:17] LABS: Thyroid Stimulating Hormone 2.23 uIU/mL (0.27-4.20); Vitamin B12 401 pg/mL (232-1245)
[2022-07-04 02:19] LABS: Folate Level 8.3 ng/mL (4.8-37.3)
[2022-07-04 03:14] LABS: Add Urine Microscopic? YES; Bacteria Urine 2+ /hpf; Bilirubin Urine Neg (Negative); Blood Urine 2+ (Negative); Glucose Urine UA Norm (Normal); Ketones Urine Negative (Negative); Leukocyte Esterase Urine Negative (Negative); Mucus Urine 2+ /hpf; Nitrate Urine Negative (Negative); Protein Urine 3+ (Negative); RBC Urine 0-4 /hpf (0-2); Specific Gravity, Urine 1.025 (1.005-1.030); Squamous Epithelial Cell Urine 55-80 /hpf (0-5); Urine Appearance Clear (CLEAR); Urine Color Yellow (Yellow); Urobilinogen Urine Norm (Negative); pH Urine 6 (5-7)
[2022-07-04 03:15] LABS: Add Urine Culture? No
[2022-07-04 05:01] LABS: ABG PH Result 7.25 (7.35-7.45); Alveolar-Arterial Oxygen Gradi 7.7 mmHg (5-10); Base Excess ABG 13.7 mmol/L (-2.0-2.0); Blood Gas Allen Test Pos; Blood Gas Sample Site Radial, right; Blood Gas Sample Type Arterial; Carboxyhemoglobin 2.8 %THgb (0.4-20.1); HCO3 ABG 45.3 mmol/L (22-26); HGB O2 Sat 94.6 % (95-100); Ionized Calcium Level - ABG 1.4 mmol/L (1.1-1.4); Methemoglobin 0.9 % (0.4-1.5); Oxygen Device BIPAP; Oxygen Saturation ABG 98.2; Total Hemoglobin 12.7 g/dL (12-16)
[2022-07-04] MEDS: famotidine 20 mg/2 mL INJ IVP ×2 (05:26→16:59)
[2022-07-04] MEDS: levothyroxine 75 mcg Tablet PO (05:26)
[2022-07-04] MEDS: enoxaparin 40 mg/0.4 mL Syringe SUBCUT (05:26)
--- NOTE | 2022-07-04 05:36 | PM.HP ---
Providers/Chief Complaint Admitting Physician: Richard Crisostomo MD Chief Complaint: SOB History of Present Illness Carmel Barber is a 62 year old female with past medical history of COPD on 3 L baseline oxygen supplementation, hypothyroidism, hypertension, congestive heart failure who recently moved from [place] presents to the ER today because of increasing difficulty in breathing over the last 1 week. As per patient her breathing has been getting worse gradually over the last 1 month but for last 1 week she ran out of her nebulization treatment hence her breathing has been getting worse. Denies any fevers, sick contacts, cough more than usual. Currently getting short of breath even at rest or on conversation. States she gets hospitalized at least 4-5 times a year for COPD exacerbation but has never been intubated. In the ER patient was awake and alert and was found to have a PCO2 of more than 100 on ABG with mild respiratory acidosis hence was placed on the BiPAP after which continued to have persistent hypercapnia hence decision was made to admit the patient for possible need of intubation. Examination patient was lying comfortably in bed on BiPAP at 22/8 with saturation of around 96%. Patient gets short of breath and uses accessory muscles untying of BiPAP currently. Review of Systems General: Reports: 10 or more systems reviewed and unremarkable except in HPI and below Const: Denies: fever(s), chills, body aches, change in appetite, change in weight, malaise, night sweats, diaphoresis, change in sleep pattern, daytime sleepiness or snoring Eyes: Denies: change in vision, blurry vision, photophobia, eye discomfort or eye discharge ENMT: Denies: throat pain, enlarged tonsils, hoarseness, mouth pain, oral sores, dry mouth, tinnitus, nasal congestion or post nasal drip Card: Denies: chest pain, palpitations, irregular heart rhythm, edema, swelling of feet/ankles, lightheadedness, syncope, pre-syncope, dyspnea on exertion, orthopnea, leg pain with exertion or acrocyanosis Resp: Denies: dyspnea, productive cough, non-productive cough, wheezing, stridor, pain on inspiration, change in phlegm color, hemoptysis or chest congestion GI: Denies: abdominal pain, nausea, vomiting, hematemesis, coffee ground emesis, dysphagia, heartburn, diarrhea, constipation, bloating, GI cramping, change in bowel habits, pain on defecation, hematochezia or melena : Denies: flank pain, dysuria, urinary frequency, urinary urgency, urinary hesitancy, nocturia or hematuria Musc: Denies: neck pain, back pain, extremity pain, joint pain, joint swelling, joint redness, joint stiffness or limited range of motion Neuro: Denies: headache(s), numbness in extremities, weakness in extremities, sensory changes, lack of coordination, difficulty walking, frequent falls, dizziness, vertigo, confusion, Slurred speech present, difficulty communicating thoughts or seizure-like activity Psych: Denies: anxiety, depression, mood swings, panic attacks, hopelessness or irritability Endo: Denies: polyuria, polydipsia, tired all the time, cold intolerance, excessive sweating, flushing or heat intolerance Flaquito/Lymph: Denies: easy bruising or easy bleeding All/Imm: Denies: tongue swelling, facial swelling or acute wheezing Medications/Allergies Home Medications Medication Instructions Recorded Confirmed Last Taken Type albuterol sulfate 90 mcg/actuation 2 puff inhalation Q4H PRN 08/31/21 08/31/21 Unknown History aerosol inhaler Shortness Of Breath ascorbic acid (vitamin C) 1,000 mg 1,000 mg PO DAILY 08/31/21 08/31/21 Unknown History tablet (Vitamin C) aspirin 81 mg tablet,delayed 81 mg PO BEDTIME 08/31/21 08/31/21 08/30/21 History release atorvastatin 20 mg tablet 20 mg PO BEDTIME 08/31/21 08/31/21 08/30/21 History bupropion HCl 150 mg tablet,12 hr 150 mg PO BID 08/31/21 08/31/21 1 Month Ago History sustained-release ~07/31/21 pt not taken for a m carvedilol 3.125 mg tablet 3.125 mg PO BID 08/31/21 08/31/21 2 Months Ago History ~07/03/21 cholecalciferol (vitamin D3) 125 125 mcg PO DAILY 08/31/21 08/31/21 Unknown History mcg (5,000 unit) tablet (Vitamin D3) fluticasone propionate 50 2 spray intranasal DAILY PRN 08/31/21 08/31/21 Unknown History mcg/actuation nasal Allergy Symptoms spray,suspension furosemide 40 mg tablet 20 mg PO QAM 08/31/21 08/31/21 08/29/21 History ipratropium 0.5 mg-albuterol 3 mg 3 ml inhalation TID PRN Shortness 08/31/21 08/31/21 Unknown History (2.5 mg base)/3 mL nebulization Of Breath soln levothyroxine 75 mcg tablet 75 mcg PO QAM 08/31/21 08/31/21 08/31/21 History (Euthyrox) multivitamin 1 tab PO DAILY 08/31/21 08/31/21 Unknown History multivitamin with minerals 1 tab PO DAILY 08/31/21 08/31/21 Unknown History (Hair,Skin and Nails tablet) naphazoline 0.36558 %-pheniramine 2 drp ophthalmic (eye) BID 08/31/21 08/31/21 Unknown History 0.315 % eye drops (Opcon-A) nitroglycerin 0.4 mg sublingual 0.4 mg sublingual Q5M PRN Chest 08/31/21 08/31/21 Unknown History tablet (Nitrostat) Pain telmisartan 40 mg tablet 40 mg PO BEDTIME 08/31/21 08/31/21 08/30/21 History vitamin B complex 1 tab PO DAILY 08/31/21 08/31/21 Unknown History zolpidem 5 mg tablet 5 mg PO BEDTIME 08/31/21 08/31/21 08/30/21 History Allergies Allergy/AdvReac Type Severity Reaction Status Date / Time Penicillins Allergy Unknown Verified 08/31/21 15:05 sulfamethoxazole Allergy Unknown Verified 08/31/21 15:05 [From Bactrim] trimethoprim [From Bactrim] Allergy Unknown Verified 08/31/21 15:05 PFSH Acute PFSH: Medical History (Updated 07/04/22 @ 05:44 by Richard Crisostomo MD) CHF (congestive heart failure) COPD (chronic obstructive pulmonary disease) COPD exacerbation Hypertension Hypothyroidism Social History Smoking and tobacco status: current every day smoker Alcohol intake: never Vitals/I&O/Wt Last Vital Signs Temp 98.3 F 07/04/22 05:00 Pulse 70 07/04/22 05:15 Resp 15 07/04/22 05:15 BP 132/82 07/04/22 05:15 Pulse Ox 84 L 07/04/22 05:15 O2 Del Method 07/04/22 05:02 O2 Flow Rate 3 07/03/22 22:05 FiO2 40 07/04/22 04:55 Weight last 48 hrs Weight 83.149 kg Weight 90.718 kg Physical Exam Narrative: General: No acute distress, AO x3, on BiPAP, in respiratory distress coming off BiPAP with the use of accessory muscles HEENT: PERRLA, pupils bilaterally equal and reactive Chest: Bilateral bronchial breath sounds all over lung quispe, diffuse rhonchi and crackles all over lung quispe CVS: S1-S2 regular, no murmurs, no tachycardia, no gallops, no rubs Abdomen: Soft, nontender, no organomegaly, bowel sounds present, morbidly obese Neuro: No focal deficits, no facial deformity, AO x3, power 5/5 in all limbs Urinary Catheter Management: Orta: Cath Placed During This Visit: yes Urinary Catheter Date of Insertion: 07/04/22 Urinary Catheter Time of Insertion: 02:56 Data 07/03/22 22:15 07/03/22 22:15 Micro: Microbiology 07/04/22 02:50 Legionella Urinary Antigen - Final Urine Catheterized A&P Assessment and plan (1) Acute exacerbation of chronic obstructive airways disease: PCO2 more than 100 on ABG with mild respiratory acidosis. Do not have baseline PCO2. Quite likely she is very close to her baseline but again her pH is low. Continue with BiPAP ventilation for now. Target PO2 around 88. Repeat ABG in couple of hours after being on new BiPAP settings. DuoNebs every 6 hours, budesonide twice daily. Solu-Medrol 40 mg every 8 hourly. Check echocardiogram. IV Lasix 40 mg one-time. Low concern for pneumonia. Check sputum culture, urine Legionella, bacterial antigen. Hold off on starting antibiotics for now. Flu, COVID-19 rapid antigen negative. (2) Acute and chronic respiratory failure with hypercapnia: (3) Hypertension: Continue home medications of carvedilol and telmisartan. Goal blood pressure less than 140/90 mmHg. (4) Goals of care, counseling/discussion: Plan CODE STATUS: Discussed in detail with the patient. Full code. She is okay with intubation knowing that it might be a difficult extubation for her given her advanced COPD. Patient would want her brother Mr. Marcus Middleton to be her DPOA. Cardiac diet. Lovenox for DVT prophylaxis Famotidine for PUD prophylaxis. Admit to ICU for hypercapnic respiratory failure with concerns for possible need of intubation Attestations Medical Necessity Statement*: Admission for more than 2 midnights for management of hypercapnic respiratory failure with possible requirement of intubation in setting of COPD exacerbation and High Time for a total of 70 minutes, includes reviewing past or interval history, examining/interviewing patient, placing orders, counseling patient/family/other support, updating patient/family/other support, discussing plan of care with staff, communicating with other healthcare providers, documenting encounter and coordinating care Diagnoses Acute exacerbation of chronic obstructive airways disease J44.1 Acute and chronic respiratory failure with hypercapnia J96.22 Hypertension I10 Goals of care, counseling/discussion Z71.89
[2022-07-04] MEDS: FUROsemide 10 mg/mL SDV 4mL 40 MG IVP (06:09)
[2022-07-04] MEDS: ipratropium 0.5 mg/2.5 mL Neb INHALATION ×3 (08:34→21:00)
[2022-07-04] MEDS: budesonide 0.5 mg/2 mL Neb INHALATION ×2 (08:34→20:59)
[2022-07-04 08:50] LABS: ABG PH Result 7.36 (7.35-7.45); Arterial Blood Gas Hematocrit 38.7 % (37-47); Base Excess ABG 17.1 mmol/L (-2.0-2.0); Blood Gas Operator Identificat GD; Blood Gas Sample Site Brachial, right; Blood Gas Sample Type Arterial; HCO3 ABG 46.6 mmol/L (22-26); Oxygen Device BIPAP; PO2 ABG 65.9 mmHg (80.0-100.0)
[2022-07-04 08:53] LABS: ABG PCO2 82.9 mmHg (35-45)
--- NOTE | 2022-07-04 09:00 | PC.NURSE ---
Pt stated she uses her Oxygen at home while she smokes. Oxygen safety discussed; Not smoking around Oxygen, Oxygen is flammable, could burn your face, air way and your house with you and anyone else present. Pt not happy but verbalized understanding.
--- NOTE | 2022-07-04 09:03 | PC.PHAR ---
PT UNABLE TO VERIFY OF 8:45 AM- PTS CONTACT ALSO UNABLE TO VERIFY MEDICATIONS
[2022-07-04] MEDS: ferrous gluconate 324 mg Tablet PO ×2 (09:08→17:28)
[2022-07-04] MEDS: buPROPion SR (12 HR) 150 mg Tablet PO ×2 (09:08→17:28)
--- NOTE | 2022-07-04 13:09 | PM.MISC ---
Miscellaneous Note Note: Patient was seen and examined this morning, patient is stating that she has been smoking while keeping his cannula she has been using 3 L 04/12 Active smoker Goals of care discussed with the patient Continue BiPAP until pH improves Repeat ABG at 2 PM If pH shows improvement then we will let her eat Awake and alert Euvolemic S1, S2 Currently on BiPAP FiO2 35% Hemodynamically stable Able to tell me her signs and symptoms No active chest pain or shortness of breath Very agitated Continue BiPAP until 2 PM by me repeat blood gas pH is showing improvement We will let her eat give her a break from BiPAP Active smoker, patient counseled She does not want to take it in past, tried lozenges Full code Diminished airflow bilaterally Severe COPD traits present
[2022-07-04] MEDS: nicotine 4 mg lozenge MUCOUS MEM ×2 (13:15→18:23)
[2022-07-04 14:14] LABS: ABG PH Result 7.35 (7.35-7.45); Arterial Blood Gas Hematocrit 38.3 % (37-47); Base Excess ABG 17.1 mmol/L (-2.0-2.0); Blood Gas Allen Test Pos; Blood Gas Operator Identificat GD; Blood Gas Sample Site Radial, left; Blood Gas Sample Type Arterial; HCO3 ABG 46.9 mmol/L (22-26); Oxygen Device NC; PO2 ABG 68.5 mmHg (80.0-100.0)
[2022-07-04 14:16] LABS: ABG PCO2 85.5 mmHg (35-45)
[2022-07-04] MEDS: acetaminophen 325 mg Tablet 650 MG PO (16:59)
--- NOTE | 2022-07-04 18:53 | PC.NURSE ---
Shift Note: Pt had Bipap on for most of the shift. FIO2 at 40. No significant changes between this am ABG and this afternoon ABG. Lung sounds very diminished. Removed for brief moments for PO medications and dinner. Used 3lpm/NC at those times, her home amount. She has needed nicotine lozenges twice this shift. Afebrile. Sinus rhythm noted on monitor. NO Bm this sift even though pt stated she felt like she could. 1175ml of clear pale yellow urine output. Frequent safety and comfort rounds continue. Orders and/or nursing care completed as indicated. Patient monitored for response to intervention and treatment(s). Education provided includes plan of care, progress, Solu-medrol and Lasix. Patient's business process representative verbalized understanding of all topics discussed. . Will continue to monitor.
--- NOTE | 2022-07-04 19:31 | PC.NURSE ---
Shift note: Pt had Bipap on for most of the shift. FIO2 at 40. No significant changes between this am ABG and this afternoon ABG. Lung sounds very diminished. Removed for brief moments for PO medications and dinner. Used 3lpm/NC at those times, her home amount. She has needed nicotine lozenges twice this shift. Afebrile. Sinus rhythm noted on monitor. NO Bm this sift even though pt stated she felt like she could. 1175ml of clear pale yellow urine output. Frequent safety and comfort rounds continue. Orders and/or nursing care completed as indicated. Patient monitored for response to intervention and treatment(s). Education provided includes SOlumedrol, NIcotine lozenges, Pepcid, BIPAp, plan of care and progress. Patient verbalized understanding to Oxygen safety, medications disucssed, plan of care and progress. . Will continue to monitor.
[2022-07-04] MEDS: morphine 4 mg/mL SDV 1 mL 2 MG IVP (20:48)
[2022-07-04] MEDS: atorvastatin 40 mg Tablet 20 MG PO (20:48)
[2022-07-04] MEDS: losartan 50 mg Tablet 100 MG PO (20:48)
[2022-07-04] MEDS: aspirin 81 mg EC Tablet PO (20:48)
[2022-07-05] VITALS (33 sets, daily range): BP systolic 97–157; BP diastolic 49–90; PULSE 58–86; RESP 14–26; TEMP 36.7–36.8; O2SAT 92–100
[2022-07-05] MEDS: nicotine 4 mg lozenge MUCOUS MEM ×4 (00:46→17:14)
[2022-07-05] MEDS: morphine 4 mg/mL SDV 1 mL 2 MG IVP ×3 (00:51→22:24)
[2022-07-05] MEDS: albuterol 2.5 mg/3 mL Neb INHALATION ×5 (01:20→20:45)
[2022-07-05] MEDS: ipratropium 0.5 mg/2.5 mL Neb INHALATION ×3 (01:20→20:45)
[2022-07-05 03:10] LABS: Hematocrit 35.7 % (37.0-47.0); Hemoglobin 11.2 g/dL (11.5-15.3); Lymphocytes # 0.7 10^3/uL (0.8-4.8); Lymphocytes % 11.9 %; Mean Corpuscular HGB Conc 31.4 g/dL (30.0-36.0); Mean Corpuscular Hemoglobin 30.3 pg (28.0-34.0); Mean Corpuscular Volume 96.5 fl (81-99); Mean Platelet Volume 9.9 fL (7.4-10.4); Monocytes # 0.1 10^3/uL (0.2-0.9); Monocytes % 2.1 %; Neutrophils # 5.26 10^3/uL (1.8-7.7); Neutrophils % 85.7 %; Nucleated Red Blood Cells % 0 %; Platelet Count 227 10^3/cmm (130-400); Red Cell Distribution Width 11.5 % (12.1-15.1); White Blood Count 6.1 10^3/uL (4.0-10.0)
[2022-07-05 03:26] LABS: Alanine Aminotransferase 9 U/L (0-33); Albumin Level 3.7 g/dL (3.5-5.2); Alkaline Phosphatase 70 U/L (35-105); Anion Gap 10.1 (5-19); Aspartate Amino Transferase 14 U/L (0-32); Blood Urea Nitrogen 28 mg/dL (8-23); Calcium 10.1 mg/dL (8.5-10.5); Chloride 90 mmol/L (98-107); Chol HDL Ratio 2.67 mg/dL (0.0-4.40); Cholesterol 152 mg/dL (0-200); Globulin 2.9 g/dL (1.3-4.6); Glucose 139 mg/dL (65-115); HDL Cholesterol 57 mg/dL (60-100); LDL Cholesterol Calculated 76 mg/dL (50-129); LDL HDL Ratio 1.33 RATIO (0.00-3.22); Magnesium 1.7 mg/dL (1.7-2.3); Osmolality Calculated 294 mOsm/kg (285-295); Phosphorus 3.2 mg/dL (2.5-4.5); Potassium 4.1 mmol/L (3.5-5.1); Sodium 138 mmol/L (136-145); Total Bilirubin 0.3 mg/dL (0.15-1.2); Total Protein 6.6 g/dL (6.6-8.7); Triglycerides 93 mg/dL (0-150)
[2022-07-05 03:38] LABS: Estmated Average Glucose 88; Hemoglobin A1C 4.7 % (4.0-6.0)
[2022-07-05 03:50] LABS: Carbon Dioxide 42 mmol/L (22-29)
[2022-07-05] MEDS: levothyroxine 75 mcg Tablet PO (04:55)
[2022-07-05] MEDS: enoxaparin 40 mg/0.4 mL Syringe SUBCUT (04:55)
[2022-07-05] MEDS: famotidine 20 mg/2 mL INJ IVP ×2 (04:56→17:51)
[2022-07-05] MEDS: ferrous gluconate 324 mg Tablet PO ×2 (08:15→18:09)
[2022-07-05] MEDS: buPROPion SR (12 HR) 150 mg Tablet PO ×2 (08:15→18:09)
[2022-07-05] MEDS: budesonide 0.5 mg/2 mL Neb INHALATION ×2 (08:54→20:45)
[2022-07-05 09:25] LABS: ABG PCO2 59.7 mmHg (35-45); ABG PH Result 7.46 (7.35-7.45); Arterial Blood Gas Hematocrit 36.9 % (37-47); Base Excess ABG 15.4 mmol/L (-2.0-2.0); Blood Gas Allen Test Pos; Blood Gas LPM 3.5 %; Blood Gas Operator Identificat CAK; Blood Gas Sample Site Radial, left; Blood Gas Sample Type Arterial; Oxygen Device NC; PO2 ABG 81.4 mmHg (80.0-100.0)
--- NOTE | 2022-07-05 12:28 | P.PN_ITS ---
Subjective Subjective: Patient is off BiPAP eating breakfast Brother updated Requested PT evaluation Transfer out of ICU Requested ABG which showed respiratory alkalosis Improvement in hypoxia and hypercapnia Patient is willing to quit smoking Vitals/I&O/Wt Last Vital Signs Temp 98.1 F 07/05/22 04:00 Pulse 78 07/05/22 11:42 Resp 16 07/05/22 11:42 BP 97/49 07/05/22 08:00 Pulse Ox 97 07/05/22 11:42 O2 Del Method 07/05/22 11:42 O2 Flow Rate 3.5 07/05/22 11:42 FiO2 40 07/05/22 10:00 07/04/22 07/05/22 07/05/22 22:59 06:59 14:59 Intake Total 640 / 850 60 / 910 120 / 120 Output Total 1175 / 1175 500 / 1675 Balance -535 / -325 -440 / -765 120 / 120 Weight last 48 hrs Weight 82.554 kg Weight 83.779 kg Weight 83.149 kg Weight 90.718 kg Physical Exam Narrative: Patient is sitting at the bedside eating breakfast Currently on 2 L nasal cannula Hemodynamically stable Mild edema of legs noted She has very poor movement of air bilaterally No active wheezing or crackles Abdomen soft Emotional labile S1, S2 GCS 15 nonfocal neuro exam Urinary Catheter Management: Orta: Cath Placed During This Visit: yes Reason for Continuing Indwelling Catheter: Accurate Measurement of Urinary Output in Critically Ill Patients Urinary Catheter Date of Insertion: 07/04/22 Urinary Catheter Time of Insertion: 02:56 Data 07/05/22 02:38 07/05/22 02:38 Micro: Microbiology 07/04/22 02:50 Bacterial Antigens - Final Urine Kidney A&P Assessment and plan (1) Goals of care, counseling/discussion: (2) Hypertension: (3) Acute and chronic respiratory failure with hypercapnia: (4) Acute exacerbation of chronic obstructive airways disease: (5) Acute hypercapnic respiratory failure: (6) Physical deconditioning: (7) Nicotine addiction: Plan Acute COPD exacerbation Hypoxic hypercapnic Improved with use of BiPAP Active smoker Continue empirical antibiotic coverage Afebrile No active consolidation on chest x-ray Continue IV steroids Transfer out of ICU Physical deconditioning related to underlying COPD We will give a pulmonary referral at discharge Family and patient both updated regarding my concerns related to worsening of COPD because of poor airflow, she is full code for now Brother updated Brothers number [phone], she is willing to make her brother DONALD who lives in [place] Patient is stating she is not a good terms with her daughter her name is Yvonne [phone]: Stating limited information should be forwarded to her. Transfer out of ICU to [facility] continue bupropion DVT prophylaxis on board Attestations Medical Necessity Statement*: Transfer out of ICU and Moderate Time for a total of 35 minutes, includes reviewing past or interval history, examining/interviewing patient, placing orders, counseling patient/family/other support, updating patient/family/other support, discussing plan of care with staff, documenting encounter and coordinating care Diagnoses Goals of care, counseling/discussion Z71.89 Hypertension I10 Acute and chronic respiratory failure with hypercapnia J96.22 Acute exacerbation of chronic obstructive airways disease J44.1 Acute hypercapnic respiratory failure J96.02 Physical deconditioning R53.81 Nicotine addiction F17.200
--- NOTE | 2022-07-05 17:07 | PC.NURSE ---
Nurse received patient via ICU tx. Patient is alert and oriented and sitting on the side of the bed with family at bedside.
--- NOTE | 2022-07-05 17:10 | PC.NURSE ---
1640 Transfer patient to [facility] via wheelchair on oxygen with family member AT bedside, took clothing, phone, and phone senior quality methods specialist. No c/o's.
[2022-07-05] MEDS: aspirin 81 mg EC Tablet PO (21:09)
[2022-07-05] MEDS: atorvastatin 40 mg Tablet 20 MG PO (21:09)
[2022-07-06] VITALS (16 sets, daily range): BP systolic 124–150; BP diastolic 67–88; PULSE 64–85; RESP 15–20; TEMP 36.4–36.9; O2SAT 93–98
[2022-07-06] MEDS: ipratropium 0.5 mg/2.5 mL Neb INHALATION ×4 (01:38→21:04)
[2022-07-06] MEDS: albuterol 2.5 mg/3 mL Neb INHALATION ×4 (01:38→21:04)
[2022-07-06] MEDS: nicotine 4 mg lozenge MUCOUS MEM ×2 (03:23→17:27)
[2022-07-06 05:26] LABS: Alanine Aminotransferase 10 U/L (0-33); Albumin Level 3.8 g/dL (3.5-5.2); Alkaline Phosphatase 68 U/L (35-105); Anion Gap 9.5 (5-19); Aspartate Amino Transferase 15 U/L (0-32); Blood Urea Nitrogen 30 mg/dL (8-23); Chloride 92 mmol/L (98-107); Globulin 2.8 g/dL (1.3-4.6); Glucose 127 mg/dL (65-115); Osmolality Calculated 296 mOsm/kg (285-295); Potassium 4.5 mmol/L (3.5-5.1); Sodium 139 mmol/L (136-145); Total Bilirubin 0.3 mg/dL (0.15-1.2); Total Protein 6.6 g/dL (6.6-8.7)
[2022-07-06] MEDS: famotidine 20 mg/2 mL INJ IVP ×2 (05:43→17:19)
[2022-07-06] MEDS: morphine 4 mg/mL SDV 1 mL 2 MG IVP ×3 (05:43→23:11)
[2022-07-06 05:48] LABS: Carbon Dioxide 42 mmol/L (22-29)
[2022-07-06] MEDS: enoxaparin 40 mg/0.4 mL Syringe SUBCUT (05:48)
[2022-07-06] MEDS: FUROsemide 40 mg Tablet 20 MG PO (05:48)
[2022-07-06] MEDS: levothyroxine 75 mcg Tablet PO (05:48)
[2022-07-06] MEDS: budesonide 0.5 mg/2 mL Neb INHALATION ×2 (08:31→21:04)
[2022-07-06] MEDS: buPROPion SR (12 HR) 150 mg Tablet PO ×2 (08:47→17:19)
[2022-07-06] MEDS: ferrous gluconate 324 mg Tablet PO ×2 (08:49→17:19)
--- NOTE | 2022-07-06 10:15 | P.PN_ITS ---
Subjective Subjective: Significant hypoxic events noted on overnight pulse ox study Hypercapnic Patient will need BiPAP to prevent readmission in the hospital She has severe COPD She had decided to quit smoking Work with PT, still complaining of fatigue and lethargy No overnight events Tolerating her diet Vitals/I&O/Wt Last Vital Signs Temp 98.5 F 07/06/22 07:50 Pulse 74 07/06/22 08:00 Resp 20 H 07/06/22 08:00 BP 130/69 07/06/22 07:50 Pulse Ox 93 07/06/22 08:00 O2 Del Method 07/06/22 08:00 O2 Flow Rate 2 07/06/22 08:00 FiO2 40 07/05/22 16:00 07/05/22 07/06/22 07/06/22 22:59 06:59 14:59 Intake Total 240 / 480 480 / 960 60 / 60 Balance 240 / 480 480 / 960 60 / 60 Weight last 48 hrs Weight 86.5 kg Weight 82.554 kg Physical Exam Narrative: Mild signs of trace edema lower extremity No significant air movement Currently on 2 L nasal cannula Abdomen soft S1, S2 Awake and alert GCS 15 Nonfocal neuro exam Working with PT Urinary Catheter Management: Orta: Cath Placed During This Visit: yes Reason for Continuing Indwelling Catheter: Other Urinary Catheter Date of Insertion: 07/04/22 Urinary Catheter Time of Insertion: 02:56 Data 07/05/22 02:38 07/06/22 04:24 Micro: Microbiology 07/05/22 09:10 Gram Stain - Final Sputum - Expectorated Sputum 07/04/22 13:06 MRSA Culture - Final Nose A&P Assessment and plan (1) Nicotine addiction: (2) Physical deconditioning: (3) Goals of care, counseling/discussion: (4) Hypertension: (5) Acute and chronic respiratory failure with hypercapnia: (6) Acute exacerbation of chronic obstructive airways disease: (7) Acute hypercapnic respiratory failure: Plan Severe COPD Exacerbation: Improving No active wheezing Poor airflow Minimal exertion would make her short of breath Currently on 2 L She would need BiPAP to prevent readmissions It is very important for her to have BiPAP at this point because of significant hypoxia and hypercapnia, she has decided to quit smoking Family updated Continue PT She will need outpatient pulmonary referral and pulmonary rehab No need to repeat labs for tomorrow [facility] number [phone]: Updated yesterday All questions were answered Patient remains full code DVT prophylaxis on board Position: Plan to discharge her home by tomorrow Caramel Coloring Operator updated for BiPAP approval Attestations Medical Necessity Statement*: Discharge tomorrow Coding Level of Care Code 03224 Diagnoses Nicotine addiction F17.200 Physical deconditioning R53.81 Goals of care, counseling/discussion Z71.89 Hypertension I10 Acute and chronic respiratory failure with hypercapnia J96.22 Acute exacerbation of chronic obstructive airways disease J44.1 Acute hypercapnic respiratory failure J96.02
[2022-07-06 11:16] LABS: Glucose Point of Care 211 mg/dL (70-110)
[2022-07-06] MEDS: aspirin 81 mg EC Tablet PO (21:33)
[2022-07-06] MEDS: atorvastatin 40 mg Tablet 20 MG PO (21:33)
[2022-07-07] VITALS (9 sets, daily range): BP systolic 133–147; BP diastolic 70–76; PULSE 69–76; RESP 16–22; TEMP 36.4–36.6; O2SAT 94–100
[2022-07-07] MEDS: albuterol 2.5 mg/3 mL Neb INHALATION ×3 (03:15→12:24)
[2022-07-07] MEDS: ipratropium 0.5 mg/2.5 mL Neb INHALATION ×2 (03:15→07:51)
[2022-07-07] MEDS: FUROsemide 40 mg Tablet 20 MG PO (05:46)
[2022-07-07] MEDS: levothyroxine 75 mcg Tablet PO (05:46)
[2022-07-07] MEDS: enoxaparin 40 mg/0.4 mL Syringe SUBCUT (05:46)
[2022-07-07] MEDS: famotidine 20 mg/2 mL INJ IVP (06:19)
--- NOTE | 2022-07-07 06:35 | P.DS_ITS ---
Discharge Providers Date of Admission: 07/04/22 04:39 Date of Discharge: July 07, 2022 Attending Provider at Admission: Richard Crisostomo MD Attending Provider at Discharge: Evelyne Griffin MD Diagnoses at Discharge Discharge Diagnosis (1) Nicotine addiction: Status: Acute (2) Physical deconditioning: Status: Acute (3) Goals of care, counseling/discussion: Status: Acute (4) Hypertension: Status: Acute (5) Acute and chronic respiratory failure with hypercapnia: Status: Acute (6) Acute exacerbation of chronic obstructive airways disease: Status: Acute (7) Acute hypercapnic respiratory failure: Status: Acute Reason for Visit Reason for Visit: SOB Hospital Course Hospital Course 62-year female active smoker, oxygen pendant COPD, uses 3 L at baseline, smokes more than a pack a day, chronic history of smoking, presented to the hospital for hypoxic hypercapnic respiratory failure, CT scan did not show any active consolidation she was treated with empirical antibiotics, she remained hemodynamically stable afebrile, for 48 hours she remained on BiPAP because of persistent hypercapnia, we were able to wean her off BiPAP and let her eat once she was on nasal cannula, patient was counseled aggressively regarding smoking cessation, family meeting was conducted, patient is not a good terms with her daughter, she is asking us to get in touch with her brother, his phone number is listed in my previous progress note, patient is full code for now, she does understand that in case of further worsening she may end up in the hospital again, she is high risk for readmissions, in order to prevent readmissions to case management we have got her BiPAP approved, she did show significant hypoxia overnight, significant hypercapnia, she will need BiPAP for her severe COPD, she will need pulmonary rehab and pulmonary outpatient follow-up. Patient had decided to quit smoking. She did well with physical therapy throughout her hospitalization. Patient easily gets short of breath with minimal activities, she is not short of breath with normal conversation. Home situation: She lives with her [id number], [id number] takes care of her significant other as well. Home conditions are not ideal, she does not want to go to custodial for now. At the time of discharge she will get trilogy, doxycycline, Roflumilast, DuoNeb nebulized refill Physical Exam Narrative: Awake and alert 3 L nasal cannula Patient does not move much air at baseline Abdomen soft Pursed lip breathing S1, S2 Urinary Catheter Management: Orta: Cath Placed During This Visit: yes, but has since been removed by the nurse Reason for Continuing Indwelling Catheter: Decision to DC Catheter Urinary Catheter Date of Insertion: 07/04/22 Urinary Catheter Time of Insertion: 02:56 Date Urinary Catheter Removed: 07/06/22 Time Urinary Catheter Discontinued: 10:00 Discharge Data Studies Completed and Pending Completed Studies During Hospitalization Category Date Time Status CT chest wo con [id number] Stat Cat Scan 07/04/22 01:35 Completed XR chest 1V portable [id number] Stat Exams 07/03/22 22:14 Completed CV. echo complete* [id number] Stat Ultrasound 07/04/22 01:35 Completed Pending at discharge Category Date Time Status Sputum Culture and Gram Stain Routine Lab 07/05/22 09:10 Results Radiology Impressions Chest X-Ray 07/03/22 22:14 IMPRESSION: 1. Emphysematous changes. 2. Bibasilar atelectasis versus infiltrate right greater than left. Chest CT 07/04/22 01:35 IMPRESSION: 1. Severe centrilobular and panlobular emphysema. 2. Atherosclerotic vascular disease including coronary artery disease. 3. Old granulomatous disease. COMMENTS: In the absence of a history or active diagnosis of lung cancer, it is recommended that this patient with emphysema be evaluated for enrollment in a low dose CT lung cancer screening program. Laboratory Results WBC 6.1 10^3/uL (4.0-10.0) 07/05/22 02:38 RBC 3.70 10^6/uL (4.1-5.3) L 07/05/22 02:38 Hgb 11.2 g/dL (11.5-15.3) L 07/05/22 02:38 Hct 35.7 % (37.0-47.0) L 07/05/22 02:38 MCV 96.5 fl (81-99) 07/05/22 02:38 MCH 30.3 pg (28.0-34.0) 07/05/22 02:38 MCHC 31.4 g/dL (30.0-36.0) D 07/05/22 02:38 RDW 11.5 % (12.1-15.1) L 07/05/22 02:38 Plt Count 227 10^3/cmm (130-400) 07/05/22 02:38 MPV 9.9 fL (7.4-10.4) 07/05/22 02:38 Neut % (Auto) 85.7 % 07/05/22 02:38 Lymph % (Auto) 11.9 % 07/05/22 02:38 Tillman % (Auto) 2.1 % 07/05/22 02:38 Eos % (Auto) 0.0 % 07/05/22 02:38 Baso % (Auto) 0.0 % 07/05/22 02:38 Neut # (Auto) 5.26 10^3/uL (1.8-7.7) 07/05/22 02:38 Lymph # (Auto) 0.7 10^3/uL (0.8-4.8) L 07/05/22 02:38 Tillman # (Auto) 0.1 10^3/uL (0.2-0.9) L 07/05/22 02:38 Eos # (Auto) 0.0 10^3/uL (0.0-0.8) 07/05/22 02:38 Baso # (Auto) 0.0 10^3/uL (0.0-0.1) 07/05/22 02:38 Nucleated RBC % (auto) 0 % 07/05/22 02:38 Nucleated RBCs # 0.0 /100WBC 07/05/22 02:38 PT 13.10 SECONDS (12.1-14.9) 07/03/22 22:15 INR 0.96 (0.8-1.2) 07/03/22 22:15 Specimen Type Arterial 07/05/22 09:14 Sample Site Radial, left 07/05/22 09:14 ABG pH 7.46 (7.35-7.45) H 07/05/22 09:14 ABG pCO2 59.7 mmHg (35-45) H 07/05/22 09:14 ABG pO2 81.4 mmHg (80.0-100.0) 07/05/22 09:14 ABG HCO3 42.0 mmol/L (22-26) H 07/05/22 09:14 ABG O2 Saturation 98.2 07/04/22 03:00 ABG Base Excess 15.4 mmol/L (-2.0-2.0) H 07/05/22 09:14 Chris Test Pos 07/05/22 09:14 A-a O2 Gradient 7.7 mmHg (5-10) 07/04/22 03:00 Hematocrit 36.9 % (37-47) L 07/05/22 09:14 Hgb O2 Saturation 94.6 % (95-100) L 07/04/22 03:00 Carboxyhemoglobin 2.8 %THgb (0.4-20.1) 07/04/22 03:00 Methemoglobin 0.9 % (0.4-1.5) 07/04/22 03:00 Total Hemoglobin 12.7 g/dL (12-16) 07/04/22 03:00 Sodium 142.0 mmol/L (131-143) 07/04/22 03:00 Potassium 5.0 mmol/L (3.5-5.0) 07/04/22 03:00 Glucose 161.0 mg/dL (70-115) H 07/04/22 03:00 Ionized Calcium 1.4 mmol/L (1.1-1.4) 07/04/22 03:00 O2 Delivery Device Nc 07/05/22 09:14 O2 Liters/Min 3.5 % 07/05/22 09:14 FiO2 32.0 % 07/04/22 13:58 Communications Station Manager ID Cak 07/05/22 09:14 Sodium 139 mmol/L (136-145) 07/06/22 04:24 Potassium 4.5 mmol/L (3.5-5.1) 07/06/22 04:24 Chloride 92 mmol/L (98-107) L 07/06/22 04:24 Carbon Dioxide 42 mmol/L (22-29) H* 07/06/22 04:24 Anion Gap 9.5 (5-19) 07/06/22 04:24 BUN 30 mg/dL (8-23) H 07/06/22 04:24 Creatinine 0.9 mg/dL (0.5-0.9) 07/06/22 04:24 GFR Calculation 63.0 mL/min (90-130) L 07/06/22 04:24 Glucose 127 mg/dL (65-115) H 07/06/22 04:24 POC Glucose 211 mg/dL (70-110) H 07/06/22 11:13 Estimat Average Glucose 88 07/05/22 02:38 Hemoglobin A1c 4.7 % (4.0-6.0) 07/05/22 02:38 Calculated Osmolality 296 mOsm/kg (285-295) H 07/06/22 04:24 Calcium 10.0 mg/dL (8.5-10.5) 07/06/22 04:24 Phosphorus 3.2 mg/dL (2.5-4.5) 07/05/22 02:38 Magnesium 1.7 mg/dL (1.7-2.3) 07/05/22 02:38 Total Bilirubin 0.3 mg/dL (0.15-1.2) 07/06/22 04:24 AST 15 U/L (0-32) 07/06/22 04:24 ALT 10 U/L (0-33) 07/06/22 04:24 Alkaline Phosphatase 68 U/L (35-105) 07/06/22 04:24 NT-Pro-B Natriuret Pep 77 pg/mL (0-125) 07/03/22 22:15 NT-Pro-B Natriuret Pep 78 pg/mL (0-125) 07/03/22 22:15 Total Protein 6.6 g/dL (6.6-8.7) 07/06/22 04:24 Albumin 3.8 g/dL (3.5-5.2) 07/06/22 04:24 Globulin 2.8 g/dL (1.3-4.6) 07/06/22 04:24 Triglycerides 93 mg/dL (0-150) 07/05/22 02:38 Cholesterol 152 mg/dL (0-200) 07/05/22 02:38 LDL Cholesterol, Calc 76 mg/dL (50-129) 07/05/22 02:38 HDL Cholesterol 57 mg/dL (60-100) L 07/05/22 02:38 LDL/HDL Ratio 1.33 RATIO (0.00-3.22) 07/05/22 02:38 Cholesterol/HDL Ratio 2.67 mg/dL (0.0-4.40) 07/05/22 02:38 Vitamin B12 401 pg/mL (232-1245) 07/03/22 22:15 Folate 8.3 ng/mL (4.8-37.3) 07/03/22 22:15 Procalcitonin 0.02 ng/mL (0-0.5) 07/03/22 22:15 TSH 2.23 uIU/mL (0.27-4.20) 07/03/22 22:15 Urine Color Yellow (Yellow) 07/04/22 02:50 Urine Appearance Clear (CLEAR) 07/04/22 02:50 Urine pH 6 (5-7) 07/04/22 02:50 Ur Specific Left Hand 1.025 (1.005-1.030) 07/04/22 02:50 Urine Protein 3+ (Negative) H 07/04/22 02:50 Urine Glucose (UA) Norm (Normal) 07/04/22 02:50 Urine Ketones Negative (Negative) 07/04/22 02:50 Urine Blood 2+ (Negative) H 07/04/22 02:50 Urine Nitrate Negative (Negative) 07/04/22 02:50 Urine Bilirubin Neg (Negative) 07/04/22 02:50 Urine Urobilinogen Norm mg/dL (Negative) 07/04/22 02:50 Ur Leukocyte Esterase Negative (Negative) 07/04/22 02:50 Urine RBC 0-4 /hpf (0-2) H 07/04/22 02:50 Urine WBC 5-10 /hpf (0-5) H 07/04/22 02:50 Ur Squamous Epith Cells 55-80 /hpf (0-5) H 07/04/22 02:50 Amorphous Sediment Not Reportable 07/04/22 02:50 Urine Bacteria 2+ /hpf (NONE) H 07/04/22 02:50 Hyaline Casts 10-15 /lpf H 07/04/22 02:50 Urine Mucus 2+ /hpf 07/04/22 02:50 Influenza Type A Ag negative (Negative) 07/03/22 22:18 Influenza Type B Ag negative (Negative) 07/03/22 22:18 SARS-CoV-2 Ag (Rapid) negative (Negative) 07/03/22 22:18 Vitals Last Vital Signs Temp 97.6 F 07/07/22 04:55 Pulse 72 07/07/22 04:55 Resp 20 H 07/07/22 04:55 BP 140/70 07/07/22 04:55 Pulse Ox 94 07/07/22 04:55 O2 Del Method 07/07/22 02:00 O2 Flow Rate 2 07/06/22 20:00 FiO2 40 07/07/22 03:16 Discharge Plan Discharge Patient Disposition: Home Condition: Stable Prescriptions: [place] Ellipta 100-62.5-25 mcg blister with device 1 inh inhalation DAILY Qty: 60 4RF roflumilast 250 mcg tablet 250 mcg PO DAILY Qty: 30 2RF doxycycline hyclate 100 mg tablet 100 mg PO BID 3 Days Qty: 6 0RF ipratropium-albuterol 0.5 mg-3 mg(2.5 mg base)/3 mL solution for nebulization 3 ml inhalation Q8H PRN (Reason: shortness of breath or wheezing) Qty: 180 4RF Continued multivitamin Tablet 1 tab PO DAILY furosemide 40 mg tablet 20 mg PO QAM bupropion HCl 150 mg tablet sustained-release 12 hr 150 mg PO BID ipratropium-albuterol 0.5 mg-3 mg(2.5 mg base)/3 mL solution for nebulization 3 ml INHALATION TID PRN (Reason: Shortness Of Breath) aspirin [Aspir-81] 81 mg Tablet,Delayed Release (Dr/Ec) 81 mg PO BEDTIME carvedilol 3.125 mg tablet 3.125 mg PO BID levothyroxine [Euthyrox] 75 mcg tablet 75 mcg PO QAM telmisartan 40 mg tablet 40 mg PO BEDTIME nitroglycerin [Nitrostat] 0.4 mg Tablet, Sublingual 0.4 mg SUBLINGUAL Q5M PRN (Reason: Chest Pain) Rx Instructions: do not exceed 3 doses per episode vitamin B complex Tablet 1 tab PO DAILY zolpidem 5 mg tablet 5 mg PO BEDTIME fluticasone propionate [Flonase] 50 mcg/actuation [place],Suspension 2 spray INTRANASAL DAILY PRN (Reason: Allergy Symptoms) Rx Instructions: administer into each nostril propranolol 60 mg Capsule,Extended Release 24 Hr 60 mg PO DAILY Discontinued ascorbic acid (vitamin C) [Vitamin C] 1,000 mg Tablet 1,000 mg PO DAILY atorvastatin 20 mg tablet 20 mg PO BEDTIME Hair,Skin and Nails Tablet 1 tab PO DAILY albuterol sulfate 90 mcg/actuation HFA aerosol inhaler 2 puff INHALATION Q4H PRN (Reason: Shortness Of Breath) cholecalciferol (vitamin D3) [Vitamin D3] 125 mcg (5,000 unit) Tablet 125 mcg PO DAILY naphazoline-pheniramine 0.027-0.315 % Drops 2 drp OPHTHALMIC (EYE) BID PRN (Reason: Dry Eyes) Discharge Orders: Discharge Order (Routine); Ordered 07/07/22 Ordered By: Evelyne Griffin Other Ambulatory Orders: DME: BIPAP (Order) Location: None Selected Ordered By: Evelyne Griffin Referrals: To get In Home Services [Other] (You will need to call your Insurance Company, the number is listed on your Card. They will ask you what services you are wanting.) Patient Instructions: Opioid Safety Discharge Attestations Time Spent in Discharge Care*: less than 30 min Quality Metrics Clinical Quality Measures [ No reported AMI, CVA or VTE this stay] Coding Level of Care Code Acute Code for Chg Fwd Diagnoses Nicotine addiction F17.200 Physical deconditioning R53.81 Goals of care, counseling/discussion Z71.89 Hypertension I10 Acute and chronic respiratory failure with hypercapnia J96.22 Acute exacerbation of chronic obstructive airways disease J44.1 Acute hypercapnic respiratory failure J96.02
[2022-07-07] MEDS: budesonide 0.5 mg/2 mL Neb INHALATION (07:51)
[2022-07-07] MEDS: buPROPion SR (12 HR) 150 mg Tablet PO (09:32)
[2022-07-07] MEDS: morphine 4 mg/mL SDV 1 mL 2 MG IVP (09:34)
[2022-07-07] MEDS: ferrous gluconate 324 mg Tablet PO (09:35)
[2022-07-07] MEDS: nicotine 4 mg lozenge MUCOUS MEM (10:46)
--- NOTE | 2022-07-07 14:32 | PC.NURSE ---
Discharge Note Patient discharged to home via private vehicle accompanied by brother. Discharge instructions reviewed with patient and/or customer solutions representative. Mobile pharmacy medications and/or prescriptions provided. Belongings/home medications returned.
== END 2022-07-07 14:00 | disposition home or self-care (01) | DRG 189 ==
LOC: ER 07-04 01:18 → ICU 07-04 04:34 → MEDSURG 07-05 16:48
PROVIDERS: Admitting Provider Student in an Organized Health Care Education/Training Program; Emergency Provider Emergency Medicine; Visit Provider Internal Medicine
DX: J96.21 Acute and chronic respiratory failure with hypoxia (principal); J44.1 Chronic obstructive pulmonary disease with (acute) exacerbation; J96.22 Acute and chronic respiratory failure with hypercapnia; F17.200 Nicotine dependence, unspecified, uncomplicated; Z99.81 Dependence on supplemental oxygen; Z79.82 Long term (current) use of aspirin; E03.9 Hypothyroidism, unspecified; I11.0 Hypertensive heart disease with heart failure; I50.9 Heart failure, unspecified
CPT/HCPCS: 36415; 36416; 36600; 51702; 71045; 71250; 80051; 80053; 80061; 81001; 82330; 82607; 82746; 82803; 82805; 82962; 83036; 83735; 83880; 84100; 84145; 84443; 85025; 85610; 86403; 87070; 87205; 87426; 87449; 87641; 87804; 93005; 93306; 94640; 94660; 96372; 96374; 96375; 96376; 97116; 97161; 97530; 99285; A9270; J1650; J1940; J2270; J2405; J2930; J3490; J7613; J7626; J7644

== ENCOUNTER 2024-11-17 23:38 | Emergency (ER) | payer MEDICAID, SELFPAY ==
--- OUTSIDE RECORDS SUMMARY | 2011-05-26 11:43 | XMS_ITS | Continuity of Care Document ---
Author Organization [facility] Address [address] [place] [address] Phone Care Team Providers Care Cleaner Operator Name Role Phone Unavailable Unavailable Unavailable Allergies, Adverse Reactions, Alerts Substance Reaction Status Criticality BUPROPION HCL Active No Information trimethoprim Active No Information sulfamethoxazole Active No Informat ion NORTRIPTYLINE HCL Active No Informa tion codeine Active No Information PENICILLIN G POTASSIUM Active No In formation Medications Medication Instructions Dosage Effective Dates (start - stop) Status Comments Synthroid 50 mcg Tab Take 1 tab po daily - Active ProAir HFA 90 mcg/Actuation Aerosol Inhaler Inhale two times by mouth every four hours - Active Temazepam 30 mg Cap take 1 capsule (30MG ) by ORAL route every day at bedtime as needed 30 MG - Active Zestril 10 mg Tab one by mouth once daily - Active Aspirin 81 mg Tab, Delayed Release one by mouth once daily with food - Active Simvastatin 80 mg Tab Take one daily - Active POTASSIUM CHLORIDE 20MEQTAB PRT SR 1 po daily when taking furosemide prn - Active Furosemide 20 mg Tab Take 1-2 BID prn swelling - Active Prilosec OTC 20 mg Tab Take one tablet by mouth once to twice daily - Active DuoNeb 0.5 mg-3 mg(2.5 mg base)/3 mL Neb Solution 1 amp in neb unit QID - Active Spiriva with HandiHaler 18 mcg & inhalation Caps Inhale one time by mouth daily - Active Procedures Procedure Date OV DETAILED, EST OV EXPANDED, EST OV EXPANDED, EST ROUTINE VENIPUNCTURE SPECIMEN HANDLING OV DETAILED, EST FLU VACCINE 3 YRS And Greater IM 2008 OV EXPANDED, EST ROUTINE VENIPUNCTURE SPECIMEN HANDLING OV EXPANDED, EST OV EXPANDED, EST CHEST X-RAY 2 V OV EXPANDED, EST OV EXPANDED, EST Spirometry Pre And Post Bronchodilator A dministration OV DETAILED, EST ROUTINE VENIPUNCTURE SPECIMEN HANDLING OXIMETRY OV EXPANDED, EST OXIMETRY OXIMETRY ROUTINE VENIPUNCTURE SPECIMEN HANDLING OV DETAILED, EST OV EXPANDED, EST OV EXPANDED, EST OV DETAILED, EST OV EXPANDED, EST ROUTINE VENIPUNCTURE SPECIMEN HANDLING OV EXPANDED, EST OV EXPANDED, EST OV EXPANDED, EST OV EXPANDED, EST OV EXPANDED, EST ELECTROCARDIOGRAM, COMPLETE OV EXPANDED, EST SPECIMEN HANDLING ROUTINE VENIPUNCTURE OV EXPANDED, EST OV EXPANDED, EST OV EXPANDED, EST ELECTROCARDIOGRAM, COMPLETE OXIMETRY CHEST X-RAY 2 V OV EXPANDED, EST TISSUE EXAM FOR FUNGI OV EXPANDED, EST SPECIMEN HANDLING ROUTINE VENIPUNCTURE OV MINIMAL/NURSE, EST SPECIMEN HANDLING ROUTINE VENIPUNCTURE OV MINIMAL/NURSE, EST SPECIMEN HANDLING ROUTINE VENIPUNCTURE OV MINIMAL/NURSE, EST SPECIMEN HANDLING ROUTINE VENIPUNCTURE OV EXPANDED, EST ELECTROCARDIOGRAM, COMPLETE OXIMETRY OV EXPANDED, EST ELECTROCARDIOGRAM, COMPLETE OV EXPANDED, EST SPECIMEN HANDLING ROUTINE VENIPUNCTURE OXIMETRY X-RAY EXAM OF FOOT/2 VIEWS OV EXPANDED, EST OV EXPANDED, EST OV EXPANDED, EST SPECIMEN HANDLING ROUTINE VENIPUNCTURE ELECTROCARDIOGRAM, COMPLETE CHEST X-RAY 2 V OV EXPANDED, EST Advance Directives Directive Yes / No Effective Date File Name No Information Encounters Encounter Description Practice Location Reason(s) For Visit Diagnoses Date Provider Providers Copied on Encounter [facility], [address], [address], [place], [address], tel:[phone] [place] No Information 2 No Information OV DETAILED, [facility], [address], [address], [place], [address], [place] tel: [phone] [place] cold symptoms (chief complaint) SinusitisAcute bronchitisChroni c airway obstruction, not elsewhere classified Aug- 0 No Information [facility], [address], [address], [place], [address], [place] tel: [phone] [place] No Information 0 No Information OV EXPANDED, [facility], [address], [address], [place], [address], [place] tel: [phone] [place] upper respiratory infection (chief complaint) Chronic airway obstruction, not elsewhere classifiedAcute bronchitisAcute suppurative otitis media without spontaneous rupture of eardrum Aug-2 0-201 0 No Information OV EXPANDED, [facility], [address], [address], [place], [address], [place] tel: [phone] Dada Epstein respiratory issues (chief complaint) CoughAnxiety Nov-3 0-200 9 No Information [facility], [address], [address], [place], [address], [place] tel: [phone] [place] No Information 0 5200 9 No Information OV DETAILED, [facility], [address], [address], [place], [address], [place] tel: [phone] Dada Epstein heartburn (chief complaint) Chest pain 9 No Information OV EXPANDED, [facility], [address], [address], [place], [address], [place] tel: [phone] Dada Epstein upper respiratory infection (chief complaint)si nusitis (chief complaint) Chronic airway obstruction, not elsewhere classifiedSinusi tisHyperlipidemi a 9 No Information [facility], [address], [address], [place], [address], [place] tel: [phone] Dada Epstein HyperlipidemiaSc reening for thyroid disorders 9 Nurse RN. [address] [facility] , [place], [address], [place]. [phone] OV EXPANDED, [facility], [address], [address], [place], [address], [place] tel: [phone] Dada Epstein upper respiratory infection (chief complaint)sm oking (chief complaint) No Information 9 No Information OV EXPANDED, [facility], [address], [address], [place], [address], [place] tel: [phone] Dada Epstein chest pain (chief complaint)sm oking cessation (chief complaint) Gastroesophageal Reflux (GERD)Chronic airway obstruction, not elsewhere classifiedConges tive heart failure 9 No Information [facility], [address], [address], [place], [address], [place] tel: [phone] Dada Epstein No Information 9 No Information OV EXPANDED, [facility], [address], [address], [place], [address], [place] tel: [phone] Dada Epstein cold symptoms (chief complaint) Chronic airway obstruction, not elsewhere classifiedSinusi tisChronic airway obstruction, not elsewhere classified 9 No Information OV EXPANDED, [facility], [address], [address], [place], [address], [place] tel: [phone] Dada Epstein Possible COPD (chief complaint) Chronic airway obstruction, not elsewhere classified 9 No Information [facility], [address], [address], [place], [address], [place] tel: [phone] Dada pEstein Chronic airway obstruction, not elsewhere classified 9 Nurse RN. [address], [place], [address], [place]. tel:[phone] OV DETAILED, [facility], [address], [address], [place], [address], [place] tel: [phone] Dada Epstein copd (chief complaint)th yroid (chief complaint)he art failure (chief complaint) Chronic airway obstruction, not elsewhere classifiedChest painCongestive heart failure 9 No Information [facility], [address], [address], [place], [address], [place] tel: [phone] [place] No Information 9 No Information [facility], [address], [address], [place], [address], [place] tel: [phone] Dada Epstein HyperlipidemiaMe dications, retirement use 0 8 Nurse RN. [address] [place], [address], [place]. tel:[phone] [facility], [address], [address], [place], [address], [place] tel: [phone] [place] No Information 8 No Information OV EXPANDED, [facility], [address], [address], [place], [address], [place] tel: [phone] [place] prolapsed uterus (chief complaint) MetrorrhagiaUnsp ecified genital prolapseUnspecif ied genital prolapse 8 No Information OV DETAILED, [facility], [address], [address], [place], [address], [place] tel: [phone] [place] acid reflex (chief complaint)me d refills (chief complaint) Chronic airway obstruction, not elsewhere classified 0 8 No Information OV EXPANDED, [facility], [address], [address], [place], [address], [place] tel: [phone] [place] rash (chief complaint) Allergy 200 8 No Information OV EXPANDED, [facility], [address], [address], [place], [address], [place] tel: [phone] [place] URI (chief complaint)ed isaías (chief complaint) Chronic airway obstruction, not elsewhere classified 8 No Information OV DETAILED, [facility], [address], [address], [place], [address], [place] tel: [phone] [place] chest pain (chief complaint)co ngestion (chief complaint) Chest pain Fe 5 8 No Information OV EXPANDED, [facility], [address], [address], [place], [address], [place] tel: [phone] [place] difficulty sleeping (chief complaint) InsomniaChronic airway obstruction, not elsewhere classified Duke-2 8-200 8 No Information OV EXPANDED, [facility], [address], [address], [place], [address], [place] tel: [phone] [place] No Information Dec-0 3-200 7 No Information OV EXPANDED, [facility], [address], [address], [place], [address], [place] tel: [phone] [place] No Information 2-200 7 No Information [facility], [address], [address], [place], [address], [place] tel: [phone] [place] No Information 2200 7 No Information OV EXPANDED, [facility], [address], [address], [place], [address], [place] tel: [phone] [place] No Information Sep-2 4200 7 No Information OV EXPANDED, [facility], [address], [address], [place], [address], [place] tel: [phone] [place] No Information Dec-2 2-200 7 No Information OV EXPANDED, [facility], [address], [address], [place], [address], [place] tel: [phone] [place] No Information Aug-0 8-200 7 No Information OV EXPANDED, [facility], [address], [address], [place], [address], [place] tel: [phone] [place] No Information Avelino-0 5200 7 No Information [facility], [address], [address], [place], [address], [place] tel: [phone] [place] Coronary atherosclerosis of inaja coronary arteryCongestive heart failureOther and unspecified hyperlipidemiaHy pertension, Unspec September- 5-200 7 Nurse RN. [address] [facility] , [place], [address], [place]. [phone] OV EXPANDED, [facility], [address], [address], [place], [address], [place] tel: [phone] Dada Epstein Pneumonia, organism unspecified 7 No Information OV EXPANDED, [facility], [address], [address], [place], [address], [place] tel: [phone] Dada Epstein OBSTRUCTIVE CHRONIC BRONCHITIS, WITH (ACUTE) EXACERBATION 7 No Information OV EXPANDED, [facility], [address], [address], [place], [address], [place] tel: [phone] Dada Epstein OBSTRUCTIVE CHRONIC BRONCHITIS, WITH (ACUTE) EXACERBATIONEsop hageal refluxChest pain; Unspecified 7 No Information OV EXPANDED, [facility], [address], [address], [place], [address], [place] tel: [phone] Dada Epstein Unspecified disorder of skin and subcutaneous tissue 7 No Information OV EXPANDED, [facility], [address], [address], [place], [address], [place] tel: [phone] Dada Epstein Chronic airway obstruction, not elsewhere classified 7 No Information OV MINIMAL/NURS E, [facility], [address], [address], [place], [address], [place] tel: [phone] Dada Epstein Unspecified acquired hypothyroidismCo ngestive heart failureLong-term (current) use of other medications 6 Nurse RN. [address], [place], [address], . tel:[phone] OV MINIMAL/NURS E, [facility], [address], [address], [place], [address], [place] tel: [phone] Dada Epstein Chronic airway obstruction, not elsewhere classified [address], [place], [address], [place]. tel:[phone] OV MINIMAL/NURS E, [facility], [address], [address], [place], [address], [place] tel: [phone] [place] Other and unspecified hyperlipidemiaCh ronic airway obstruction, not elsewhere classifiedEdemaL marbella-term (current) use of other medications Nurse RN. [address] [facility] , [place], [address], . tel:[phone] OV EXPANDED, [facility], [address], [address], [place], [address], [place] tel: [phone] [place] Heart disease, unspecifiedChron ic airway obstruction, not elsewhere classifiedEsopha geal reflux 6 No Information OV EXPANDED, [facility], [address], [address], [place], [address], [place] tel: [phone] [place] Chronic airway obstruction, not elsewhere classifiedPain in limbEdema 6 No Information OV EXPANDED, [facility], [address], [address], [place], [address], [place] tel: [phone] [place] Chronic pulmonary heart disease, unspecifiedPain in joint involving ankle and foot 6 No Information OV EXPANDED, [facility], [address], [address], [place], [address], [place] tel: [phone] [place] Chronic airway obstruction, not elsewhere classified 6 No Information OV EXPANDED, [facility], [address], [address], [place], [address], [place] tel: [phone] [place] Anxiety state, unspecifiedAller gic rhinitis, cause unspecifiedChron ic airway obstruction, not elsewhere classifiedOther diseases of lung, not elsewhere classified 6 No Information OV EXPANDED, [facility], [address], [address], [place], [address], [place] tel: [phone] Dada Epstein Anxiety state, unspecifiedEdema 200 6 No Information OV EXPANDED, [facility], [address], [address], [place], [address], [place] tel: [phone] Dada Epstein Chronic pulmonary heart disease, unspecifiedChron ic airway obstruction, not elsewhere classifiedEsopha geal refluxMigraine, unspecified without mention of intractable migraine 6 No Information Family History Family Member Type Diagnosis Age At Onset Son Problem (finding) suicide Brother Problem (finding) Myocardial infarction Mother Problem (finding) Leukemia Father Problem (finding) malignant neoplasm of l dina Immunizations Vaccine Date Status Comments Influenza virus vaccine, intranasal administered Source: New Immuniza tion Record Flu (split) (3 yrs or older) administered Source: New Immunization Record flu (split) (3 yrs or older) administered Source: New Immunization Record flu (split) (3 yrs or older) administered Source: New Immunization Record pneumo (2 yrs or older) (PPV23) administered Source: New Immuniza tion Record Td (adult) administered Source: New Imm unization Record Payers Payer name Insurance type Covered libertarian ID Authoriza tion(s) No Information Social History Type Description Quantity Date Captured Comments Sex Female Smoking Status No Information Chief Complaint And Reason For Visit No Information Reason For Referral Reason For Referral No Information Plan Of Treatment Date Type Action Status Goal TD Vaccine. Due on 97 due History Of Present Illness Encounter Date Complaint History Of Prese nt Illness No Information Functional Status Date Functional Assessmen t No Information Instructions Date Instruction Additional Infor mation Call if symptoms persist Assessments Type Assessment Date No Information Patient Care Teams Name Effective Dates (start - stop) Status Members No Information
[2024-11-17 23:40] VITALS: BP 119/74; PULSE 96; RESP 20; TEMP 37.2; O2SAT 97; BMI 39.4
--- OUTSIDE RECORDS SUMMARY | 2024-11-17 23:47 | XMS_ITS | Continuity of Care Document ---
Author Organization [facility]. If a dditional information is needed, contact Health Information Management at [phone] Address [address] [place] [address] Phone Care Team Providers Care Life Claims Examiner Name Role Phone Unavailable Unavailable Unavailable Unavailable Unavailable Unavailable Unavailable Unavailable Unavailable Problems Chronic diastolic heart fail ure Comments:Chronic diastolic h eart failure Abdominal aortic aneurysm wi thout rupture Comments:Abdominal aortic an eurysm (AAA) without rupture Chest pain Comments:Chest pain, unspeci fied type Tobacco user Comments:Tobacco abuse Dyslipidemia Comments:Dyslipidemia Benign hypertension Comments:HTN (hypertension), benign Allergies and Adverse Reactions Penicillins(Allergy) Onset: 10-Jan-2018 Reaction:unknown Sulfa(Sulfonamide Antibiotic s)(Allergy) Onset: 10-Jan-2018 Reaction:unknown sulfamethoxazole(Allergy) Onset: 10-Jan-2018 Reaction:anaphylaxis trimethoprim(Allergy) Onset: 10-Jan-2018 Reaction:anaphylaxis GRASS(Allergy) Penicillin V Potassium 500 M G Oral Tablet(Allergy) POLLEN EXTRACTS(Allergy) Sulfamethoxazole-Trimethopri m(Allergy) Reaction:anaphylaxis Medications 60 ACTUAT Budesonide 0.16 MG /ACTUAT / formoterol fumarate 0.0045 MG/ACTUAT Metered Dose Inhaler [Symbicort];160-4.5 MCG/ACT Inhalation BID, 2 puffs Arias Seamus P Comments:160-4.5 MCG/ACT Inhalation BID, 2 puffs Fluticasone-Salmeterol;232-1 4 MCG/ACT Inhalation Daily, 1 puff Arias Seamus P Status:Inactive Comments:232-14 MCG/ACT Inhalation Daily, 1 puff Fish Oil;600 MG Orally BID, 1 capsule Arias Seamus P Status:Inactive Comments:600 MG Orally BID, 1 capsule Calcium;600-200 MG-UNIT Oral ly BID, 1 cap(s) Arias Seamus P Status:Inactive Comments:600-200 MG-UNIT Orally BID, 1 cap(s) Alprazolam & Diet Manage Pro d;0.5 mg orally q 6 hrs PRN, one Arias Seamus P Comments:0.5 mg orally q 6 h rs PRN, one Levothyroxine Sodium 0.125 M G Oral Tablet [Synthroid];125 MCG Orally , Arias Seamus P Comments:125 MCG Orally , Furosemide 20 MG Oral Tablet ;20 MG Orally Once a day, 1 tablet Quantity:30 Arias Seamus P Comments:20 MG Orally Once a day, 1 tablet Aspirin 325 MG Oral Tablet;3 25 MG Orally Once a day, 1 tablet Arias Seamus P Comments:325 MG Orally Once a day, 1 tablet Alprazolam;0.5 MG Orally jere ry 6 hours as needed, 1 tablet Arias Seamus P Comments:0.5 MG Orally every 6 hours as needed, 1 tablet Vitamin C;1000 MG Orally Onc e a day, 1 tablet Quantity:30 Arias Seamus P Comments:1000 MG Orally Once a day, 1 tablet Zolpidem tartrate 5 MG Oral Tablet;5 MG Orally Once a day, 1 tablet at bedtime Arias Seamus P Comments:5 MG Orally Once a day, 1 tablet at bedtime Atorvastatin Calcium;40 MG O rally Once a day, 1 tablet Quantity:30 Arias Seamus P Comments:40 MG Orally Once a day, 1 tablet Losartan Potassium 50 MG Ora l Tablet;50 MG Orally Once a day, 1 tablet Arias Seamus P Comments:50 MG Orally Once a day, 1 tablet Colchicine;0.6 MG Orally as directed, 1 tablet Arias Seamus P Status:Inactive Comments:0.6 MG Orally as directed, 1 tablet {10 (predniSONE 10 MG Oral T ablet) } Pack;10 MG Orally Once a day, 1 tablet Quantity:30 Arias Seamus P Status:Inactive Comments:10 MG Orally Once a day, 1 tablet APAP 325 MG / oxyCODONE hydr ochloride 5 MG Oral Tablet;5-325 MG Orally every 6 hrs, 1 tablet as needed Arias Seamus P Status:Inactive Comments:5-325 MG Orally every 6 hrs, 1 tablet as needed Nitroglycerin;0.4 MG Subling ual , 1 tab PRN chest pressure Arias Seamus P Comments:0.4 MG Sublingual , 1 tab PRN chest pressure Oxygen;L per NC q HS only, [address] P Comments:L per NC q HS only, 2.5 Medrol (Rito);4mg tabs in dos e pack , 1 tab(s) directed Hugo Johns Status:Inactive Comments:4mg tabs in dose pack , 1 tab(s) directed DuoNeb;0.5 mg-3mg/3L solutio n for nebulizer , Hugo Johns Comments:0.5 mg-3mg/3L solut ion for nebulizer ,
--- OUTSIDE RECORDS SUMMARY | 2024-11-17 23:48 | XMS_ITS | Patient Health Record ---
Author Organization [facility] Billing Info Address [address] [place] [id number] Care Team Providers Care Complementary Health Therapists Name Role Phone EVERARDO DIANE MD Primary Care Provider Unava ilable Allergies Allergen (clinical drug ingredient) Drug/Non Drug Allergy documented on EMR Reaction Allergy Type Onset Date Status GRASS Unknown Drug Allergy Active POLLEN EXTRACTS Unknown Drug Allergy A ctive Sulfa anaphylaxis Drug Allergy Activ e Penicillin Unknown Drug Allergy Active Reason For Referral No Information Medications Medication SIG (Take, Route, Frequency, Duration) Notes Start Date End Date Status Zolpidem Tartrate 5 MG 1 tablet at bedti me Orally Once a day Active DuoNeb 0.5 mg-3mg/3L solution for nebulizer Activ e Alprazolam 0.5 MG 1 tablet Orally ever y 6 hours as needed Active Nitroglycerin 0.4 MG 1 tab PRN chest pre ssure Sublingual Active Aspirin 325 MG 1 tablet Orally Once a day Active Symbicort 160-4.5 MCG/ACT 2 puffs Inhalation BID Active Oxygen L per NC 2.5 q HS only Active Losartan Potassium 50 MG 1 tablet Orally Once a day Active Synthroid 125 MCG Orally Ac tive Atorvastatin Calcium 40 MG 1 tablet Oral ly Once a day for 30 day(s) Active Vitamin C 1000 MG 1 tablet Orally Once a day for 30 day(s) Active Furosemide 20 MG 1 tablet Orally Once a day for 30 day(s) Active Social History Tobacco Use: Social History Observation Description Date Details (start date - stop date) Current Smoker NA - NA Tobacco Status: Question Answer Notes Patient is a current every day smoker Problems Problem Type SNOMED Code ICD Code Onset Dates Problem Status W/U Status Risk Notes Problem 124029421 Dyslipidemia (E78.5) Active confirmed cont atorva. obtain lipid panel Problem 677241188 Tobacco abuse (Z72.0) Active confirmed did not discuss cessation. discuss next visit if she is contemplative. Problem 80074934 HTN (hypertension), benign (I10) Active confirmed at goal. continue losartan 50. Problem 454695146 Chronic diastolic heart failure (I50.32) Active confirmed appears euvolemic. cont lasix. Will obtain echo Problem 07074076 Chest pain, unspecified type (R07.9) Active confirmed atypical but with significant risk factors. Will obtain labs from PCP. order DSE Problem 08706967 Abdominal aortic aneurysm (AAA) without rupture (I71.4) Active confirmed not anneurysmal by reported measurement on CT abd. Will obtain abd US. Plan Of Treatment No Information Insurance Providers Payer Name Payer Address Payer Phone Subscriber Number Group Number Insured Name Patient Relationship to Insured Coverage Start Date [facility]age End Date [facility] [address] [address] [place], [place] [phone] [id number] Carmel Barber Self - patient is the insured 8 8 Medical (General) History Medical History History ICD Code Chest Pain/pressure at rest, once with d iaphoresis, no SOB or nausea Hx COPD, Hypoxia (86% on room air) Heartburn with greasy food since gall bl ader was removed HTN, Mixed Hyperlipidemia Tobacco smoking dependence Diastolic Heart failure Medication adherence issuse Right Lower quadrant pain of unknown norbert gin Surgical History Surgery Date(Month/Year) Right ankle fracture repair Cholescystectomy Hysterectomy Right wrist Tonsillectomy Bladder sling Left shoulder, 7 repairs
--- OUTSIDE RECORDS SUMMARY | 2024-11-17 23:49 | XMS_ITS | Clinical Summary ---
Author Organization [facility] Address [address] [place] [id number] Care Team Providers Care Associate Quality Engineer Name Role Phone Joe Dennis MD Primary Care Provider [phone] Allergies Active Allergy Reactions Criticality Noted Date Comments Penicillins Unknown 08/26/2019 Sulfamethoxazole-Trimethoprim Anaphylaxis High 08/25 Medications albuterol sulfate 90 mcg/actuation metered powder inhaler Take by inhalation. Active nitroglycerin (NITROSTAT) 0.4 mg Tablet, Sublingual Place 1 Tablet (0.4 mg) under tongue every 5 minutes as needed for Chest Pain. 20 Tablet 1 0 Active buPROPion (WELLBUTRIN) 75 mg tablet Take 1 Tablet (75 mg) by mouth 2 times daily with meals. 60 Tablet 2 0 Active ipratropium-albu teroL (DUONEB) 0.5 mg-3 mg(2.5 mg base)/3 mL Solution for Nebulization USE 1 AMPULE IN NEBULIZER EVERY 12 HOURS NEEDED FOR SHORTNESS OF BREATH 180 mL 11 0 Active triamcinolone acetonide (KENALOG) 0.1 % Ointment Apply to affected area 2 times daily. 30 Gram 1 0 Active budesonide-formo teroL (SYMBICORT) 160-4.5 mcg/actuation HFA Aerosol InhalerIndicatio ns:Chronic obstructive pulmonary disease, unspecified COPD type (CMS/HCC) Take 2 Puffs by inhalation 2 times daily. 10.2 Gram 0 Active oxygen home delivery Home Oxygen Concentrator yes at 2.5 L/M Rest, 4 L/M Activity, 2.5 L/M Sleep, Delivery Device: Nasal Cannula Portability: yes, 2.5 L/M Rest, 4 L/M Activity, May provide device best for patient needs(E system,home fill, conserving device) Length of Need: 99 months 1 Each 1 Active losartan (COZAAR) 50 mg tablet Take 1.5 Tablets (75 mg) by mouth daily. 45 Tablet 5 1 Active Euthyrox 75 mcg tablet TAKE 1 TABLET BY MOUTH ONCE DAILY IN THE MORNING 30 Tablet 2 1 Active atorvastatin (LIPITOR) 20 mg tablet Take 1 Tablet (20 mg) by mouth daily with supper. 30 Tablet 6 1 Active zolpidem (AMBIEN) 5 mg tabletIndication s:Insomnia due to other mental disorder Take 1 Tablet (5 mg) by mouth nightly as needed for Insomnia. 30 Tablet 5 1 Active albuterol HFA 90 mcg inhaler Take 2 Puffs by inhalation every 4 hours as needed for Shortness of Breath or Wheezing. 8.5 Gram 11 1 Active Active Problems Problem Noted Date Diagnosed Date COPD 08/27/2019 Other specified hypothyroidism 08/27/2019 Essential hypertension 08/27/2019 PTSD (post-traumatic stress disorder) 08/27/2019 Environmental allergies 08/27/2019 Abdominal aortic aneurysm (AAA) without rupture 08/27/2019 Congestive heart failure 08/26/2019 Tobacco use 08/26/2019 Social History Tobacco Use Types Packs/Day Years Used Date Smoking Tobacco: Every Day Cigarettes Alcohol Use Standard Drinks/Week Comments Not Currently 0 (1 standard drink = 0.6 oz pur e alcohol) Comments Unknown Sex and Gender Information Value Date Recorded Sex Assigned at Not on file Legal Sex Female 8:41 AM CDT Gender Identity Not on file Sexual Orientation Not on file Last Filed Vital Signs Vital Sign Reading Time Taken Comments Blood Pressure 136/70 10/28/2020 9:44 AM CDT Pulse 88 10/28/2020 9:44 AM CDT Temperature 36.8 C (98.2 F) 10/28/2020 9:44 AM CDT Respiratory Rate 20 10/28/2020 9:44 AM CDT Oxygen Saturation 98% 10/28/2020 9:44 AM CDT Inhaled Oxygen Concentration - - Weight 98.4 kg (217 lb) 10/28/2020 9:44 AM CDT Height 162.6 cm (5' 4 ) 10/28/2020 9:44 AM CDT Body Mass Index 37.25 10/28/2020 9:44 AM CDT Plan of Treatment Health Maintenance Due Date Last Done Comments DTAP/TDAP/TD VACCINES (1 - Tdap) 1977 PNEUMOCOCCAL VACCINE 50+ YEARS (1 of 2 - PCV) 04/29/19 77 FIT-DNA Q 3 years 2003 FIT/FOBT Q 1 year 2003 Flex Sig/CT Colonography Q 5 years 2003 ZOSTER VACCINE (1 of 2) 2008 RSV VACCINE (60+ or ) (1 - Risk 60-74 years 1-dose series) 2018 BREAST CANCER SCREENING 10/04/2023 10/03/2022 Pre-Diabetes and Diabetes Screening 10/30/202310/29 INFLUENZA VACCINE (#1) 2024 10/28/2020 COLORECTAL SCREENING 11/10/2026 11/10/2016 Colorectal Cancer Screening 11/10/2026 OSTEOPOROSIS SCREENING 10/09/2028 10/10/2023 Procedures Procedure Name Priority Date/Time Associated Diagnosis Comments HEMOGLOBIN A1C Routine 10/29/2020 11:58 AM CDT Hypothyroidism, unspecified type Essential hypertension Weight gain from Last 3 Months or Most Recently Relevant to Health Maintenance Results * HEMOGLOBIN A1C (10/29/2020 11:58 AM CDT) HEMOGLOBIN A1C 5.5 <5.7 % of total Hgb [facility] Comment: For the purpose of screening for the presence of diabetes: <5.7% Consistent with the absence of diabetes 5.7-6.4% Consistent with increased risk for diabetes (prediabetes) > or =6.5% Consistent with diabetes This assay result is consistent with a decreased risk of diabetes. Currently, no consensus exists regarding use of hemoglobin A1c for diagnosis of diabetes in children. According to [place] [employer] (ADA) guidelines, hemoglobin A1c <7.0% represents optimal control in non- diabetic patients. Different metrics may apply to specific patient populations. Standards of Medical Care in Diabetes(ADA). Test Performed at: [facility] [id number] [place] [address] Sandro Gasca D.O., MPH Blood 10/29/2020 7:5 5 AM CDT us Trell Dennis DO CHEMISTRY ORDERABLES Final Re sult [facility] [id number] [place] [address] from Last 3 Months or Most Recently Relevant to Health Maintenance Care Teams Associate Quality Engineer Relationship Specialty Start Date End Date Joe Dennis MD [id number] [address] PCP - General Family Practice 11/05/19
--- OUTSIDE RECORDS SUMMARY | 2024-11-17 23:49 | XMS_ITS | Clinical Summary ---
Author Organization [facility] Address [address] [address] Care Team Providers Care National Stormwater Leader Name Role Phone Trell Dennis DO Primary Care Provider [phone] Allergies Active Allergy Reactions Criticality Noted Date Comments Penicillins Unknown 08/26/2019 Roflumilast Nausea and Vomiting Low 07/21/2022 PT said she took it and 20 minutes later was nauseated and started throwing up. Pressure around face and throat. Doris Ribeiro, 07/21/2022 5:23 PM Sulfamethoxazole-Trime thoprim Anaphylaxis High 08/26/2019 Medications ketotifen (Zaditor) 0.025% solution Administer 1 Drop in both eyes 2 times daily. 5 mL 1 022 Active oxygen home deliveryIndicatio ns:Simple chronic bronchitis (CMS/HCC),Chronic respiratory failure with hypoxia (CMS/HCC) Home Oxygen Concentrator yes at 2.5 L/M Rest, 4 L/M Activity, 2.5 L/M Sleep, Delivery Device: Nasal Cannula Portability: yes, 2.5 L/M Rest, 4 L/M Activity, May provide device best for patient needs(E system,home fill, conserving device) Length of Need: 99 months 1 Each 022 Active Nebulizer & Compressor For Neb DeviceIndications :Simple chronic bronchitis (CMS/HCC),Chronic respiratory failure with hypoxia (CMS/HCC),Wheezin g For use with nebulizer medication including but not limited to ipratropium a lbuterol, albuterol 1 Each 022 Active inhalational spacing device (Aerochamber MV) SpacerIndications :Simple chronic bronchitis (CMS/HCC) For use with inhaler 1 Each 022 Active nitroglycerin (NITROSTAT) 0.4 mg Tablet, Sublingual Place 1 Tablet (0.4 mg) under tongue every 5 minutes as needed for Chest Pain. 20 Tablet 1 023 Active cetirizine (ZyrTEC) 10 mg tablet Take 1 Tablet (10 mg) by mouth daily. 100 Tablet 3 023 Active alendronate (FOSAMAX) 70 mg tabletIndications :Osteoporosis without current pathological fracture, unspecified osteoporosis type Take 1 Tablet (70 mg) by mouth every 7 days. empty stomach before other meds,with 8oz of water, stay upright 30 min 12 Tablet 3 024 Active magnesium oxide (MAG-OX) 400 mg (241.3 mg magnesium) tablet Take 1 Tablet (400 mg) by mouth 2 times daily. 60 Tablet 5 024 Active Breztri Aerosphere 160 mcg-9mcg-4.8mcg/a ctuation HFA aerosol inhaler Take 2 Puffs by inhalation 2 times daily. 10.7 Gram 11 024 Active gabapentin (NEURONTIN) 100 mg capsule Take 1 Capsule (100 mg) by mouth 3 times daily. Start with 1 tab at bedtime, increase to TID as tolerated 90 Capsule 1 024 Active Additional Information Patient not taking.Reported on 10/10/2024 furosemide (LASIX) 40 mg tabletIndications :Chronic systolic congestive heart failure (CMS/HCC) TAKE 2 TABLETS BY MOUTH ONCE DAILY AND 1 TABLET AFTER LUNCH 270 Tablet 025 Active telmisartan (MICARDIS) 40 mg TabletIndications :Essential hypertension,Machinist Class B matthias systolic congestive heart failure (CMS/HCC) Take 1 Tablet (40 mg) by mouth daily. 100 Tablet 3 025 Active potassium CHLORIDE (KLOR-CON M20) 20 mEq Extended Release tabletIndications :Chronic systolic congestive heart failure (CMS/HCC) Take 1 Tablet (20 mEq) by mouth daily. 90 Tablet 1 025 Active ipratropium bromide (ATROVENT) 0.02 % SolutionIndicatio ns:Chronic respiratory failure with hypoxia (CMS/HCC) TAKE 3 ML BY INHALATION EVERY 6 HOURS NEEDED FOR SHORTNESS OF BREATH. 300 mL 1 025 Active Jardiance 10 mg tabletIndications :Chronic systolic congestive heart failure (CMS/HCC) TAKE 1 TABLET BY MOUTH ONCE DAILY IN THE MORNING 100 Tablet 025 Active ipratropium-albut Everton (DUONEB) 0.5 mg-3 mg(2.5 mg base)/3 mL Solution for NebulizationIndic ations:Chronic respiratory failure with hypoxia (CMS/HCC) Take 3 mL by inhalation every 6 hours as needed for Shortness of Breath. 180 mL 11 025 Active albuterol sulfate HFA 90 mcg/actuation aerosol inhalerIndication s:Mixed simple and mucopurulent chronic bronchitis (CMS/HCC) INHALE 2 PUFFS BY MOUTH EVERY 4 HOURS NEEDED FOR SHORTNESS OF BREATH OR WHEEZING 18 Gram 11 025 Active zolpidem (AMBIEN) 5 mg tabletIndications :Insomnia due to other mental disorder TAKE 1 TABLET BY MOUTH ONCE DAILY AT BEDTIME NEEDED FOR INSOMNIA MUST LAST 30 DAYS 30 Tablet 2 025 Active predniSONE (DELTASONE) 20 mg tabletIndications :Sciatica of right side 40 mg PO for 4 days then 20 mg daily for 3 days. 11 Tablet 025 Active tiZANidine (ZANAFLEX) 4 mg TabletIndications :Sciatica of right side Take 1 Tablet (4 mg) by mouth every 6 hours as needed for Spasm. 120 Tablet 1 025 Active levothyroxine 125 mcg tabletIndications :Other specified hypothyroidism TAKE ONE TABLET BY MOUTH DAILY IN THE MORNING 90 Tablet 1 025 Active levothyroxine 125 mcg tabletIndications :Other specified hypothyroidism TAKE 1 TABLET (125 MCG) BY MOUTH DAILY IN THE MORNING. 90 Tablet 1 025 2024 Discontinued Active Problems Problem Noted Date Diagnosed Date Osteoporosis without current pathological fractu re 07/09/2024 BMI 38.0-38.9,adult 07/09/2024 Total Hysterectomy 03/19/2024 Dyslipidemia 02/07/2024 Chronic diastolic heart failure 02/07/2024 Major depressive disorder, recurrent, moderate 0 01/29/2024 Overview (02/07/2024): Status: Major Depression Recurrent Moderate - Stable and Controlled 8. Dr. Dennis Stage 3b chronic kidney disease (CKD) 07/27/2023 Overview (07/27/2023): 07/2023: Stage IIIb, creatinine 1.82 flow 30 mL/min Cor pulmonale 07/26/2023 Overview (07/26/2023): a. Emphysema b. Smoker, ongoing Situational depression 01/09/2023 Prediabetes 02/01/2022 On home O2 10/28/2021 Chronic respiratory failure with hypoxia 022 Bilateral lower extremity edema 02/22/2021 Physical deconditioning 02/22/2021 Other specified hypothyroidism 08/27/2019 Essential hypertension 08/27/2019 PTSD (post-traumatic stress disorder) 08/27/2019 Environmental allergies 08/27/2019 COPD 08/27/2019 Abdominal aortic aneurysm (AAA) without rupture 08/27/2019 Congestive heart failure 08/26/2019 Tobacco use disorder, moderate, in early remissi on 08/26/2019 JAROCHO (obstructive sleep apnea) 07/30/2013 Overview (07/26/2023): Noc Ox study on 05/2006 75 desat events < 3 min 21 desat events > 3 min Mean high 93.9% on RA Mean low 87.6% on RA Encounters Date Type Department Care Team Description 11/04/2024 External Device Data ST[facility] ABSTRACTION Provider, Abstract 11/03/2024 Refill [facility] [address] [phone] Trell Dennis DO Other specified hypothyroidism 10/10/2024 2:10 PM CDT Office Visit [address] [phone] Cheri Cole, SODA CLERK Sciatica of right side (Primary Dx) 10/07/2024 External Device Data ST[facility] ABSTRACTION Provider, Abstract 09/17/2024 2:50 PM CDT Office Visit [address] [phone] Cheri Cole FNP Medicare annual wellness visit, subsequent (Primary Dx) 09/10/[address] [phone] Trell Dennis, Insomnia due to other mental disorder 09/09/2024 Refill [facility] [address] [phone] Trell Dennis, Insomnia due to other mental disorder 09/02/2024 External Device Data ST[facility] ABSTRACTION Provider, Abstract 08/19/2024 8:30 AM CDT Office Visit [facility] [address] [place] [address] Ernestina Torres NP Stage 4 very severe COPD by GOLD classification (CMS/HCC) (Primary Dx); Panlobular emphysema (CMS/HCC); Former smoker; Chronic respiratory failure with hypoxia (CMS/HCC); Chronic systolic congestive heart failure (CMS/HCC); JAROCHO (obstructive sleep apnea); Stage 3b chronic kidney disease (CKD) (CMS/HCC); Mixed simple and mucopurulent chronic bronchitis (CMS/HCC) 08/18/[address] [phone] Trell Dennis, Chronic systolic congestive heart failure (CMS/HCC) from Last 3 Months Immunizations Immunization Administration Dates Next Due (Moderna Bivalent)(6 Mos Up) COVID-19 Vaccine - Emergency Use Authorization, MRNA(Pf) 50 Mcg/0.5 Ml Im Susp 02/01/2022 (PNEUMOVAX 23)(50 YRS UP) PN EUMOCOCCAL POLYSACCHARIDE (PPV23) 0.5 ML, IM 02/22/2021 (PREVNAR 20)(6 WKS UP) PNEUM OCOCCAL CONJUGATE VACCINE 20-VALENT (PCV20), POLYSACCHARIDE OOU070 CONJUGATE, ADJUVANT 0.5 ML (PF) IM 09/22/2022 (SPIKEVAX) (12 YRS UP PRIMAR Y SERIES) COVID-19 VACCINE - MRNA-1273(PF) 100 MCG/0.5 ML IM SUSP 12/07/2020,10/23/2020 INFLUENZA VACCINE QUADRIVALENT 6 MOS UP PF IM INFLUENZA VACCINE QUADRIVALENT RECOMB 18 YR UP P F IM 02/09/2023 Influenza Seasonal Unspecified Formulation IM ,03/12/2019 PNEUMOVAX (PPSV23) pneumococ wisam polysaccharide 23-valent Vaccine 02/22/2021 Family History Medical History Relation Name Comments Breast Cancer Neg Hx Ovarian Cancer Neg Hx Uterine or Endometrial Cancer, Not Including Cervical Neg Hx Social History Tobacco Use Types Packs/Day Years Used Date Smoking Tobacco: Former Cigarettes 1.5 53.9 1 06/30/1968 - 03/28/2023 Passive Smoke Exposure: Current Smokeless Tobacco: Never Tobacco Cessation:Counseling Given: Not Answered Alcohol Use Standard Drinks/Week Comments Not Currently 0 (1 standard drink = 0.6 oz pur e alcohol) Comments No Sex and Gender Information Value Date Recorded Sex Assigned at Not on file Legal 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 Gender Identity Not on file Sexual Orientation Not on file Last Filed Vital Signs Vital Sign Reading Time Taken Comments Blood Pressure 124/72 10/10/2024 2:19 PM CDT Pulse 88 10/10/2024 2:19 PM CDT Temperature 36.2 C (97.1 F) 10/10/2024 2:19 PM CDT Respiratory Rate 20 10/10/2024 2:19 PM CDT Oxygen Saturation 97% 10/10/2024 2:19 PM CDT Inhaled Oxygen Concentration - - Weight 103.9 kg (229 lb) 10/10/2024 2:19 PM CDT Height 162.6 cm (5' 4 ) 10/10/2024 2:19 PM CDT Body Mass Index 39.31 10/10/2024 2:19 PM CDT Plan of Treatment Upcoming Encounters Date Type Department Care Team (Late st Contact Info) Description 01/07/2025 9:40 AM CDT Office Visit [address] [phone] Cheri Cole, SODA CLERK [address] [place] [phone] 02/18/2025 11:30 AM CDT Office Visit [facility] [address] [place] [address] Ernestina Torres NP [address] [address] Health Maintenance Due Date Last Done Comments FIT/ DNA Q 3 YEARS (AUTO ORDER) 1976 FIT/FOBT Q 1 YEAR (AUTO ORDER) 1976 DTAP/TDAP/TD VACCINES (1 - Tdap) 1977 FIT-DNA Q 3 years 2003 FIT/FOBT Q 1 year 2003 Flex Sig/CT Colonography Q 5 years 2003 ZOSTER VACCINE (1 of 2) 2008 RSV VACCINE (60+ or ) (1 - Risk 60-74 years 1-dose series) 2018 FLEX SIG/CT COLONOGRAPHY Q 5 YEARS (AUTO ORDER) 11/10/2021 11/10/2016, 11/10/2016 COVID-19 Vaccine (4 - 2023-2 5 season) 2024 02/01/2022, 12/07/2020, 10/23/2020 Lung Cancer Screening 10/23/2024 10/24/2023, 023 BREAST CANCER SCREENING 11/06/2024 11/07/19 24, 10/03/2022, 08/22/2022 INFLUENZA VACCINE (#1) 2024 , 02/09/2023, 02/11/2022, Additional history exists COLORECTAL CANCER SCREENING (AUTO ORDER) 11/10/2026 11/10/2016, 11/10/2016 COLORECTAL SCREENING 11/10/2026 11/10/2016, 11/11/19 17 Colorectal Cancer Screening (AUTO ORDER) 11/10/2026 Colorectal Cancer Screening 11/10/2026 Pre-Diabetes and Diabetes Screening 07/09/2027 07/09/2024, 03/19/2024, 10/30/2023, Additional history exists OSTEOPOROSIS SCREENING 10/09/2028 10/10/2023 PNEUMOCOCCAL VACCINE 50+ YEARS Completed 0 09/22/2022, 02/22/2021, 02/22/2021 Medicare Advantage ([place]) Preventative Visit/Annual Wellness Visit Completed 09/17/2024, 04/30/2023, 10/10/2022, Additional history exists Procedures Procedure Name Priority Date/Time Associated Diagnosis Comments HEMOGLOBIN A1C Routine 07/09/2024 9: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 Prediabetes MAMMO 3D NOEMÍ SCREEN BILATERAL MOBILE Routine 11/07/2023 12:27 PM CDT Visit for screening mammogram CT LUNG SCREENING (LDCT BASELINE OR ANNUAL) Routine 10/24/2023 3:28 PM CDT Tobacco use Personal history of nicotine dependence XR DEXA BONE DENSITY AXIAL 1 OR MORE SITES Routine 10/10/2023 4:34 PM CDT Postmenopausal ENDOSCOPY, COLON, SCREENING Routine 11/10/2016 from Last 3 Months or Most Recently Relevant to Health Maintenance Results * (ABNORMAL) HEMOGLOBIN A1C (07/09/2024 9: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) HEMOGLOBIN A1C 6.1(H) <5.7 % of total Hgb [facility] Comment: For someone without known diabetes, a hemoglobin A1c value between 5.7% and 6.4% is consistent with prediabetes and should be confirmed with a follow-up test. For someone with known diabetes, a value <7% indicates that their diabetes is well controlled. A1c targets should be individualized based on duration of diabetes, age, comorbid conditions, and other considerations. This assay result is consistent with an increased risk of diabetes. Currently, no consensus exists regarding use of hemoglobin A1c for diagnosis of diabetes for children. ESTIMATED AVERAGE GLUCOSE (MG/DL) 128 mg/dL [facility] ESTIMATED AVERAGE GLUCOSE (MMOL/L) 7.1 mmol/L [facility] Comment: Test Performed at: [facility] [address] [phone] Declan Abel MD Blood 07/09/2024 9: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 07/09/2024 9: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 Cheri Cole SODA CLERK CHEMISTRY ORDERABLES Final Re sult [facility] [phone] [facility] [address] [phone] * MAMMO 3D NOEMÍ SCREEN BILATERAL MOBILE (11/07/2023 12:27 PM CDT) Anatomical Region Laterality Modality Breast Bilateral Mammography Impressions 11/19/2023 4:09 PM CDT : No mammographic evidence of malignancy. BI-RADS ASSESSMENT: 1 - Negative RECOMMENDATION: Routine annual screening mammography. Narrative 11/19/2023 4:09 PM CDT EXAM: MAMMO SCRN BILAT 3D NOEMÍ W OR WO CAD INDICATION: Screening COMPARISON: 08/22/2022 MAMMO 3D SCREEN BILATERAL MOBILE BREAST COMPOSITION: There are scattered areas of fibroglandular density. FINDINGS: RIGHT BREAST: There are no suspicious masses, calcifications, or areas of architectural distortion. LEFT BREAST: There are no suspicious masses, calcifications, or areas of architectural distortion. Trell GRAFFO ORDERABLES Final Result * CT LUNG SCREENING (LDCT BASELINE OR ANNUAL) (10/24/2023 3:28 PM CDT) Anatomical Region Laterality Modality Chest Computed Tomogra phy 10/24/2023 3:23 PM CDT Impressions 10/25/2023 4:11 PM CDT IMPRESSION: Please see below. Exam: CT LUNG SCREENING (LDCT BASELINE OR ANNUAL) Date/Time of Exam: 10/24/2023 3:28 PM Reason For Exam: Lung cancer screening, >= 20 pk-yr smoking history (Age >= 50y). Diagnosis: Tobacco use; Personal history of nicotine dependence. Comparison: CT lung screening exam 08/21/2022. Technique: Low-dose lung screening protocol. FINDINGS: Thoracic inlet: The thoracic inlet is within normal limits. Lymph Nodes: There are no pathologic axillary, mediastinal or hilar lymph nodes by size criteria. Thoracic aorta: The thoracic aorta is nonaneurysmal. Heart: The heart is normal in size. There are coronary artery calcifications. There is no pericardial effusion. Tracheobronchial tree: The tracheobronchial tree is within normal limits. Lungs: There is no pulmonary consolidation. There are no suspicious pulmonary lesions. Diffuse emphysematous change. Slight increase in linear scar versus plate-like atelectasis of the medial aspect of the anterior segment of the right upper lobe and right middle lobe is present. Persistent atelectasis versus airspace disease of the medial aspect of the right middle lobe. Old granulomatous residuals Pleura: There is no pleural effusion or pneumothorax. Upper abdomen: There is no significant upper abdominal pathology. Subcutaneous soft tissues: There is no significant subcutaneous soft tissue pathology. Bones: The osseous structures appear grossly intact. No suspicious osseous lesions are identified. IMPRESSION: 1. Slight increase in linear scar versus plate-like atelectasis of the anterior segment of the right upper lobe and right middle lobe and emphysematous change. Lung-RADS 1: NEGATIVE. No nodules or definitely benign nodules. Continue annual screening with LDCT in 12 months. [id number] Narrative Procedure Note Micheline Quintana MD - 10/25/2023 IMPRESSION: Please see below. Exam: CT LUNG SCREENING (LDCT BASELINE OR ANNUAL) Date/Time of Exam: 10/24/2023 3:28 PM Reason For Exam: Lung cancer screening, >= 20 pk-yr smoking history (Age >= 50y). Diagnosis: Tobacco use; Personal history of nicotine dependence. Comparison: CT lung screening exam 08/21/2022. Technique: Low-dose lung screening protocol. FINDINGS: Thoracic inlet: The thoracic inlet is within normal limits. Lymph Nodes: There are no pathologic axillary, mediastinal or hilar lymph nodes by size criteria. Thoracic aorta: The thoracic aorta is nonaneurysmal. Heart: The heart is normal in size. There are coronary artery calcifications. There is no pericardial effusion. Tracheobronchial tree: The tracheobronchial tree is within normal limits. Lungs: There is no pulmonary consolidation. There are no suspicious pulmonary lesions. Diffuse emphysematous change. Slight increase in linear scar versus plate-like atelectasis of the medial aspect of the anterior segment of the right upper lobe and right middle lobe is present. Persistent atelectasis versus airspace disease of the medial aspect of the right middle lobe. Old granulomatous residuals Pleura: There is no pleural effusion or pneumothorax. Upper abdomen: There is no significant upper abdominal pathology. Subcutaneous soft tissues: There is no significant subcutaneous soft tissue pathology. Bones: The osseous structures appear grossly intact. No suspicious osseous lesions are identified. IMPRESSION: 1. Slight increase in linear scar versus plate-like atelectasis of the anterior segment of the right upper lobe and right middle lobe and emphysematous change. Lung-RADS 1: NEGATIVE. No nodules or definitely benign nodules. Continue annual screening with LDCT in 12 months. [id number] Tre[address] ORDERABLES Final Result * (ABNORMAL) XR DEXA BONE DENSITY AXIAL 1 OR MORE SITES (10/10/2023 4:34 PM CDT) T-SCORE HIP (LEFT) -2.10(A) -1.0 - 1.0 INTERFACE SYSTEM T-SCORE SPINE -1.50(A) -1.0 - 1.0 INTER FACE SYSTEM Anatomical Region Laterality Modality Digital Radiogra phy, Mammography 10/10/2023 4:35 PM CDT Impressions 10/10/2023 10:36 PM CDT IMPRESSION: Abnormal examination Bone density lies in the osteoporotic range in the left proximal femur significantly below the average of the patient's age-matched control consistent with accelerated bone demineralization. NOF guidelines recommend consideration of FDA-approved medical therapies in patients with T-scores of the spine or hip equal to or less than -2.5 or with FRAX determined 10-year probabilities of hip/major osteoporosis-related fractures equal or greater than 3%/20% respectively. Consider assessing fracture risk using the FRAX analysis tool for guidance of clinical management available online at www.shef.ac.uk/FRAX/. Enter [employer] for Select DXA and the Femoral Neck BMD value. Also consider remeasuring no sooner than 2 years only as clinically needed. Narrative 10/10/2023 10:36 PM CDT DEXA Evaluation of the Lumbar Spine and Left Proximal Femur Reason for Consultation: Ovarian failure for osteoporosis screening. Evaluation of bone mineral density. The following absorptiometry data were obtained. The quality of this examination is acceptable with regards to count density, processed images, data display and lack of important artifacts (including but not limited to motion and attenuation artifacts). Serial examination number . L1-L4 BMD (g/cm2): 0.82 Adult T-score: -1.5 Adult Z-score: 0.3 Left Femoral Neck BMD (g/cm2): 0.520 Adult T-score: -3.0 Adult Z-score: -1.4 Left Total Hip BMD (g/cm2): 0.681 Adult T-score: -2.1 Adult Z-score: -0.9 Procedure Note Pedro Herbert MD - 10/10/2023 DEXA Evaluation of the Lumbar Spine and Left Proximal Femur Reason for Consultation: Ovarian failure for osteoporosis screening. Evaluation of bone mineral density. The following absorptiometry data were obtained. The quality of this examination is acceptable with regards to count density, processed images, data display and lack of important artifacts (including but not limited to motion and attenuation artifacts). Serial examination number . L1-L4 BMD (g/cm2): 0.82 Adult T-score: -1.5 Adult Z-score: 0.3 Left Femoral Neck BMD (g/cm2): 0.520 Adult T-score: -3.0 Adult Z-score: -1.4 Left Total Hip BMD (g/cm2): 0.681 Adult T-score: -2.1 Adult Z-score: -0.9 IMPRESSION: Abnormal examination Bone density lies in the osteoporotic range in the left proximal femur significantly below the average of the patient's age-matched control consistent with accelerated bone demineralization. NOF guidelines recommend consideration of FDA-approved medical therapies in patients with T-scores of the spine or hip equal to or less than -2.5 or with FRAX determined 10-year probabilities of hip/major osteoporosis-related fractures equal or greater than 3%/20% respectively. Consider assessing fracture risk using the FRAX analysis tool for guidance of clinical management available online at www.shef.ac.uk/FRAX/. Enter [employer] for Select DXA and the Femoral Neck BMD value. Also consider remeasuring no sooner than 2 years only as clinically needed. Trell Dennis DO DIAGNOSTIC IMAGING ORDERABLES Final Result * ENDOSCOPY, COLON, SCREENING (11/10/2016) Abstract Provider GI PROCEDURE ORDERABLES Final Result from Last 3 Months or Most Recently Relevant to Health Maintenance Insurance MEDICAID [facility] Care Teams National Stormwater Leader Relationship Specialty Start Date End Date Trell Dennis DO [address] [place] [phone] PCP - General Family Practice 12/30/20
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
--- NOTE | 2024-11-18 01:52 | XRR_ITS ---
PROCEDURE INFORMATION: Exam: XR Left Foot Exam date and time: 11/18/2024 1:54 AM Age: 64 years old Clinical indication: Pain; Foot; Left TECHNIQUE: Imaging protocol: Radiologic exam of the left foot. Views: 3 or more views. COMPARISON: No relevant prior studies available. FINDINGS: Bones/joints: Normal alignment. No acute fracture. Soft tissues: Dorsal soft tissue swelling. XR/XR foot LT min 3V* [id number] IMPRESSION: No acute osseous abnormality.
--- NOTE | 2024-11-18 02:40 | PC.NURSE ---
0225- assisted patient off bedside commode and upon re-entering bed patient became sob with audible wheezing noted. pt states receiving duoneb txments at home but states i havent had one today. verbal order obtained and ordered pt spo2 92-93% on home O2.
[2024-11-18 02:51] VITALS: PULSE 97; RESP 18; O2SAT 95
[2024-11-18] MEDS: HYDROcodone-acetaminophen 5-325 mg Tablet 1 TAB PO (04:20)
== END 2024-11-18 03:26 | disposition home or self-care (01) ==
PROVIDERS: Emergency Provider Family Medicine
DX: S90.02XA Contusion of left ankle, initial encounter (principal); Z79.82 Long term (current) use of aspirin; Z72.0 Tobacco use; J44.9 Chronic obstructive pulmonary disease, unspecified; I11.0 Hypertensive heart disease with heart failure; I50.9 Heart failure, unspecified; X58.XXXA Exposure to other specified factors, initial encounter
CPT/HCPCS: 73630; 94640; 99283; J9999